=== PATIENT | male | born 1970 | race African-American/Black ===

== ENCOUNTER 2018-09-09 18:33 | Inpatient (IN) | payer MEDICAID ==
[~2018-09-09] VITALS: Ht 177.8 cm; Wt 64.9 kg
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
[2018-09-09] MEDS ORDERED: IV NS 0.9% 1,000 ML BAG IV ONE (22:00)
[2018-09-09 22:18] LABS: BASOPHILS % (AUTO) 1.1 % (0.0-2.0); HEMATOCRIT 30 % (39-51); HEMOGLOBIN 10.2 g/dL (13.5-17.5); LYMPHOCYTES # (AUTO) 1.2 /CMM (0.8-4.8); LYMPHOCYTES % (AUTO) 32.8 % (20.0-44.0); MEAN CORPUSCULAR HGB CONC 34 g/dl (31.0-36.0); MEAN CORPUSCULAR VOLUME 88 fL (80-96); MONOCYTES # (AUTO) 0.9 /CMM (0.1-1.30); MONOCYTES % (AUTO) 23.1 % (2.0-12.0); NEUTROPHILS # (AUTO) 1.5 /CMM (1.8-8.9); PLATELET COUNT (AUTO) 147 /CMM (150-450); RED BLOOD CELL COUNT(AUTO) 3.42 MIL/uL (4.5-6.0); WHITE BLOOD COUNT (AUTO) 3.7 K/uL (4.3-11.0)
[2018-09-09 22:28] LABS: CALCIUM, SERUM 9.2 mg/dL (8.5-10.1); CARBON DIOXIDE 27 mmol/L (21-32); CHLORIDE 105 mmol/L (98-107); GLUCOSE 73 mg/dL (74-106); POTASSIUM 3.9 mmol/L (3.5-5.1); SODIUM SERUM 142 mmol/L (136-145); UREA NITROGEN, BLOOD 16 mg/dL (7-18)
--- NOTE | 2018-09-09 22:30 | NUR ---
MARTINE COLLECTED AND SENT TO LAB
[2018-09-09 22:36] LABS: ALANINE AMINOTRANSFERASE 28 U/L (12-78); ALBUMIN 3.5 g/dL (3.4-5.0); ALCOHOL, BLOOD < 3 mg/dL (0-0); ALKALINE PHOSPHATASE 68 U/L (46-116); ASPARTATE AMINOTRANSFERASE 33 U/L (15-37); BILIRUBIN,DIRECT 0.2 mg/dL (0.0-0.2); BILIRUBIN,TOTAL 0.5 mg/dL (0.2-1.0); TOTAL PROTEIN, SERUM 8.5 g/dL (6.4-8.2)
[2018-09-09 22:37] LABS: ACETAMINOPHEN 0 ug/ml (10-30); SALICYLATE 1.4 mg/dL (2.8-20.0)
[2018-09-09 23:00] LABS: BAND % (MANUAL) 1 % (0.0-5.0); EOSINOPHILS % (MANUAL) 3 % (0-4); LYMPHOCYTES % (MANUAL) 37 % (16-48); MONOCYTES % (MANUAL) 14 % (0-11.0); NEUTROPHILS % (MANUAL) 45 (42-76)
[2018-09-09 23:05] LABS: APPEARANCE,URINE CLEAR (CLEAR); BILIRUBIN,URINE 1+ (NEGATIVE); BLOOD, URINE 2+ Ery/uL (NEGATIVE); COLOR,URINE YELLOW (YELLOW); KETONES,URINE TRACE (NEGATIVE); LEUKOCYTE ESTERASE ,URINE NEGATIVE (NEGATIVE); NITRITE, URINE NEGATIVE (NEGATIVE); PROTEIN,URINE TRACE mg/dl (NEGATIVE); UGLUCOSE NEGATIVE (NEGATIVE); UROBILINOGEN,URINE 0.2 EU/dL (0.2)
[2018-09-09 23:18] LABS: BACTERIA,URINE Few /HPF (None Seen); SQUAMOUS EPITHELIAL CELL,UR Rare /HPF (None Seen); WBC,URINE 0-2 /HPF (0-3)
--- NOTE | 2018-09-09 23:45 | NUR ---
PER ALMOND GRINDER PRAVEENA, PT REFUSED CT SCAN. MD GREEN
--- NOTE | 2018-09-10 00:54 | NUR ---
AMANDA CALLED AND NIGHT CLEANER DR MUNSON
[2018-09-10] MEDS ORDERED: Z GUARD REMEDY 2 OZ OINT TP PRN (01:30)
[2018-09-10] MEDS ORDERED: ONDANSETRON HCL/PF 4 MG/2 ML VIAL IVP PRN (01:30)
[2018-09-10] MEDS ORDERED: ACETAMINOPHEN 325 MG TABLET PO PRN (01:30)
[2018-09-10] MEDS ORDERED: MAGNESIUM HYDROXIDE 30 ML UDC PO PRN (01:30)
[2018-09-10] MEDS ORDERED: MAG HYDROX/AL HYDROX/SIMETH 30 ML UDC PO PRN (01:30)
[2018-09-10] MEDS ORDERED: ZOLPIDEM TARTRATE 5 MG TABLET PO PRN (01:30)
--- NOTE | 2018-09-10 02:24 | NUR ---
REPORT GIVEN TO MARIANO FRANCO FOR SHAHZAD
[2018-09-10] MEDS: IV NS 0.9% 1,000 ML IV SCH ×3 (02:47→23:00)
--- NOTE | 2018-09-10 02:54 | NUR ---
DANCE PROFESSOR NOTES RECEIVED PT ON BED. VIA GURNEY. ON ROOM AIR SATURATING WELL. PT REFUSING TELE MONITOR , EXPLAINED RISK AND BENEFITS PT STILL REFUSED. CHARGE NURSE INFORMED. PT REFUSING SKIN ASSESSMENT. PT VERY PARANOID. V/S WNL. IV ACCESS PATENT AND INTACT. WILL MONITOR PT CLOSELY.
[2018-09-10 03:00] VITALS: BP 143/77
--- NOTE | 2018-09-10 04:32 | NUR ---
TISSUE TECHNICIAN NOTES PT REFUSING V/S TAKING AND IV FLUID. EXPLAINED RISK AND BENEFITS X3. PT STILL STRONGLY REFUSED. CHARGE NURSE INFORMED. WILL MONITOR PT CLOSELY.
--- NOTE | 2018-09-10 04:52 | NUR ---
RAYMOND MILL OPERATOR NOTES PT REFUSING BELONGING LIST CHECK. CHARGE NURSE INFORMED.
--- NOTE | 2018-09-10 06:20 | NUR ---
OSTEOPATHIC MEDICINE TEACHER NOTES INFORMED DR REGARDING PT NOT COMPLAINT TO MEDICINE, IV FLUIDS.
--- NOTE | 2018-09-10 07:18 | NUR ---
FLIGHT CONTROL MANAGER NOTES NO ACUTE CHANGES NOTED DURING THE SHIFT. PT REFUSING MEDICATIONS. TELE MONITOR AND IV FLUIDS,PROVIDED COMFORT AND SAFETY. WILL ENDORSE TO THE AM NURSE FOR CONTINUITY OF CARE.
[2018-09-10 08:00] VITALS: BP 143/77
--- NOTE | 2018-09-10 08:00 | NUR ---
PT in bed not in distress, refusing meds, IV, labs, x-ray explained benefits and risk of taking medications and refusing x3 notified with no new orders, pt requesting to eat currently md erlin notified
--- NOTE | 2018-09-10 09:49 | NUR ---
spoke with RNN PATIENT IS STILL REFUSING EXAMS ORDERED YESTERDAY (CT HEAD, CT C-SPINE, XR PELVIS).
--- NOTE | 2018-09-10 11:30 | NUR ---
pt refused labs, explained b/r x3 still refused.
[2018-09-10 12:00] VITALS: BP 143/79
[2018-09-10 12:40] VITALS: BP 143/79
--- NOTE | 2018-09-10 14:20 | NUR ---
FOLLOWED UP WITH RN AT 1420, PATIENT STILL REFUSED RADIOLOGY EXAMS
[2018-09-10 17:33] VITALS: BP 143/79
[2018-09-10] MEDS ORDERED: LORAZEPAM INJ 2 MG/ML VIAL IV PRN (19:00)
[2018-09-10 20:00] VITALS: BP 128/74
--- NOTE | 2018-09-10 20:17 | NUR ---
MS QUINTANA NOTES RECEIVED PATIENT AWAKE IN BED WITH NO DISTRESS NOTED. CALL LIGHT WITHIN REACH. NO C/O PAIN OR DISCOMFORT. PERIPHERAL LINE INTACT AND PATENT. BED IN LOW LOCK SETTING. ROOM FREE OF CLUTTER AND BELONGINGS KEPT NEAR BEDSIDE. WILL CONTINUE TO MONITOR. Addendum: 09/11/18 at 0652 by MARIELA ZAVALA RN SAMUEL QUINTANA NOTES
--- NOTE | 2018-09-10 20:18 | NUR ---
Followed once again by boiler control technician Angel. Pt. refused all xrays and CT exams, RN will CX orders.
[2018-09-11] MEDS: HYDROCODONE/APAP 5/325MG 1 EACH TABLET PO PRN ×4 (05:17→23:57)
[2018-09-11 05:33] VITALS: BP 128/74
--- NOTE | 2018-09-11 06:52 | NUR ---
NUCLEAR WEAPONS MECHANICAL SPECIALIST NOTES PATIENT AWAKE IN BED WIHT NO DISTRESS NOTED. CALL LIGHT WITHIN REACH. PATIENT STILL WITH EPISODES OF NON COMPLIANCE WITH ALL NURSING CARE DESPITE CONTINUED EXPLANATION OF RISKS AND BENEFITS X3. PRN NORCO 5/325MG 1 TAB PO GIVEN AT 0617 AND EFFECTIVE AFTER 45MINS. PATIENT AWAKE ALL NIGHT SCRATCHING AND SPEAKING TO SELF. PATIENT REDIRECTED NEEDED. BED IN LOW LOCK SETTING. ROOM FREE OF CLUTTER AND ALL BELONGINGS KEPT NEAR BEDSIDE. WILL ENDORSE TO ONCOMING SHIFT.
[2018-09-11 08:00] VITALS: BP 135/69
[2018-09-11] MEDS ORDERED: IV NS 0.9% 1,000 ML IV PRN (08:39)
[2018-09-11 12:00] VITALS: BP 135/69
[2018-09-11 16:26] VITALS: BP 135/69
[2018-09-11 20:00] VITALS: BP 103/57
[2018-09-11 20:15] VITALS: BP 103/57
[2018-09-12 04:46] VITALS: BP 170/97
--- NOTE | 2018-09-12 07:10 | NUR ---
RN NOTES RECEIVED PT ON BED, A/Ox3, ON RA, RESPIRATION EVEN AND UNLABORED, NO DISTRESS NOTED, L AC IV SITE G20 CLEAN ,DRY AND INTACT, SR UP x3, CALL LIGHT WITHIN EASY REACH, BED LOCKED AND IN LOWEST POSITION ,CONTINUE TO MONITOR.
[2018-09-12 08:00] VITALS: BP 112/65
--- NOTE | 2018-09-12 10:00 | NUR ---
RN NOTES PT REFUSED TO HAVE AM CARE, STATED WANTS TO SLEEP.
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
--- NOTE | 2018-09-12 13:15 | NUR ---
CRAIG along with MARIANO Wyatt met with pt. bedside to discuss discharge plan. Pt. would like to be discharged to his independent living, however pt. doesn't have the exact address but would like to be dropped off at [address], in [facility] [address]. Pt. states he needs a walker to ambulate. Physical Therapy consult is ordered regarding pt. able to ambulate or not. Pt. will require taxi transportation to his independent living. CRAIG gave pt. [facility] placement list, [facility] Homeless resource directory along with list of health clinics such as: [facility] [address], [address] [place]. [place] Hours: M, T, Th, F 8:30AM-4:30PM Walk-ins allowed Provide medical screening and pharmacy [facility] [address] [place]. [place] [address] Hours M-F 8AM-3:30PM Walk-ins allowed Provide medical screening and pharmacy [facility] [address]. [place] [phone] Hours 8AM-4:30PM Walk-ins allowed Provide medical screening and pharmacy Pt. requested for an additional lunch meal. Pt. to be discharged once cleared by Physical therapy. Homeless Patient Waiver Form was signed by the pt. and placed in pt's chart.
--- NOTE | 2018-09-12 13:30 | NUR ---
CRAIG received a call from RN Yoselin and Physical therapist Raman informing CRAIG that Pt. is saying he is in a lot of pain and cannot participate at this time. Pt. to be re-evaluated.
--- NOTE | 2018-09-12 13:45 | NUR ---
RN NOTES PT STATED HE CAN NOT WALK AND HE HAS LEG PAIN AND NEEDS PAIN MEDICATION. DR MULTANI NOTIFED .
--- NOTE | 2018-09-12 15:00 | NUR ---
RN NOTES PT REFUSED TO GET OUT OF BED AND STILL WANT PAIN MEDS , DR MULTANI NOTIFED , ORDER RECEIVED FROM DR MULTANI TO CALL SECURITY TO ESCORT PT OUT. H/L DISCONTINUED, WALKER PROVIDED TO PT , PT ABLE TO GET TO W/C WITHOUT ANY PROBLEM . PT SIGNED THE DISCHARGE INSTRUCTION , VERBALIZES UNDERSTANDING , TAXI VOUCHER PROVIDED, PT LEFT THE FLOOR TO MAIN ENTRANCE TO MAIN LOBBY ACCOMPANIED BY STAFF MEMBERS AND SECURITY IN STABLE CONDITION .
--- NOTE | 2018-09-12 15:05 | NUR ---
RN NOTES PT LEFT THE HOSPITAL TO [id number] [place] [phone] VIA TAXI IN STABLE CONDITION .
== END 2018-09-12 14:58 | disposition home or self-care (01) | DRG 52 ==
LOC: ER 18:40 → TELE1 09-10 02:23 → MEDSG1 09-10 17:13
PROVIDERS: ADMIT Nurse Practitioner Acute Care
DX: G92 Toxic encephalopathy (principal); D69.6 Thrombocytopenia, unspecified; D63.8 Anemia in other chronic diseases classified elsewhere; D72.819 Decreased white blood cell count, unspecified; F15.90 Other stimulant use, unspecified, uncomplicated; Z91.19 Patient's noncompliance with other medical treatment and regimen
CPT/HCPCS: 36415; 71045-TC; 80048-TC; 80076-TC; 80305; 81000-TC; 84484-TC; 85025-TC; 87081-TC; G0378; G0480; J2060; J7030

== ENCOUNTER 2019-05-04 18:28 | Inpatient (IN) | payer MEDICAID ==
[~2019-05-04] VITALS: Ht 182.9 cm; Wt 53.5 kg
[2019-05-04] MEDS ORDERED: ALBUTEROL FS 2.5 MG/3 ML VIAL.NEB ONE (19:48)
[2019-05-04] MEDS ORDERED: IBUPROFEN 600 MG TABLET PO ONE ×2 (20:00→20:06)
[2019-05-04] MEDS ORDERED: CEFTRIAXONE 1GM BAG (ER ONLY) 50 ML IV ONE (20:00)
[2019-05-04] MEDS ORDERED: AZITHROMYCIN 500 MG in IV D5W 250 ML IV ONE (20:00)
[2019-05-04] MEDS ORDERED: IV NS 0.9% 1,000 ML BAG IV ONE (20:00)
[2019-05-04] MEDS ORDERED: ALBUTEROL FS 2.5 MG/3 ML VIAL.NEB CONTNEB ONE (20:00)
[2019-05-04 20:07] LABS: BASOPHILS % (AUTO) 0.8 % (0.0-2.0); EOSINOPHILS % (AUTO) 2.8 % (0.0-6.0); HEMATOCRIT 22 % (39-51); HEMOGLOBIN 7.4 g/dL (13.5-17.5); LYMPHOCYTES # (AUTO) 0.2 /CMM (0.8-4.8); LYMPHOCYTES % (AUTO) 11.7 % (20.0-44.0); MEAN CORPUSCULAR HGB CONC 34 g/dl (31.0-36.0); MEAN CORPUSCULAR VOLUME 80 fL (80-96); MONOCYTES # (AUTO) 0.3 /CMM (0.1-1.30); MONOCYTES % (AUTO) 14.6 % (2.0-12.0); NEUTROPHILS # (AUTO) 1.4 /CMM (1.8-8.9); NEUTROPHILS % (AUTO) 70.1 % (43.0-81.0); PLATELET COUNT (AUTO) 123 /CMM (150-450); RED BLOOD CELL COUNT(AUTO) 2.76 MIL/uL (4.5-6.0)
[2019-05-04 20:18] LABS: CALCIUM, SERUM 7.9 mg/dL (8.5-10.1); CARBON DIOXIDE 26 mmol/L (21-32); CHLORIDE 97 mmol/L (98-107); CREATININE 0.8 mg/dL (0.6-1.3); GLUCOSE 97 mg/dL (74-106); POTASSIUM 3.7 mmol/L (3.5-5.1); SODIUM SERUM 130 mmol/L (136-145); UREA NITROGEN, BLOOD 8 mg/dL (7-18)
[2019-05-04 20:23] LABS: ALANINE AMINOTRANSFERASE 13 U/L (12-78); ALBUMIN 2.6 g/dL (3.4-5.0); ALKALINE PHOSPHATASE 60 U/L (46-116); ASPARTATE AMINOTRANSFERASE 23 U/L (15-37); BILIRUBIN,DIRECT 0.1 mg/dL (0.0-0.2); BILIRUBIN,TOTAL 0.3 mg/dL (0.2-1.0); TOTAL PROTEIN, SERUM 7.3 g/dL (6.4-8.2)
[2019-05-04 20:36] LABS: APPEARANCE,URINE Clear (CLEAR); BILIRUBIN,URINE Negative (NEGATIVE); BLOOD, URINE Negative Ery/uL (NEGATIVE); COLOR,URINE Yellow (YELLOW); KETONES,URINE Negative (NEGATIVE); LEUKOCYTE ESTERASE ,URINE Negative (NEGATIVE); NITRITE, URINE Negative (NEGATIVE); PH,URINE 6.5 (5.0-8.0); PROTEIN,URINE Negative (NEGATIVE); UGLUCOSE Negative (NEGATIVE); UROBILINOGEN,URINE 0.2 EU/dL (0.2)
[2019-05-04] MEDS ORDERED: EMTR1TAB12 PO (21:20)
[2019-05-04] MEDS ORDERED: ETHA400T8 PO (21:20)
[2019-05-04] MEDS ORDERED: RIFA150C22 PO (21:20)
[2019-05-04] MEDS ORDERED: OLAN7.5T3 PO (21:20)
[2019-05-04] MEDS ORDERED: AZIT250T13 PO (21:20)
[2019-05-04] MEDS ORDERED: ALBUTEROL FS 2.5 MG/0.5 ML VIAL.NEB NEB PRN (21:30)
[2019-05-04] MEDS ORDERED: ZOLPIDEM TARTRATE 5 MG TABLET PO PRN (21:30)
[2019-05-04] MEDS ORDERED: HYDROCODONE/APAP 5/325MG 1 EACH TABLET PO PRN (21:30)
[2019-05-04] MEDS ORDERED: HYDROCODONE/APAP 10/325MG 1 EA TABLET PO PRN (21:30)
[2019-05-04] MEDS ORDERED: IPRATROPIUM NEB FS 0.5 MG/2.5 ML AMPUL.NEB NEB PRN (21:30)
[2019-05-04] MEDS ORDERED: MAG HYDROX/AL HYDROX/SIMETH 30 ML UDC PO PRN (21:30)
[2019-05-04] MEDS ORDERED: ACETAMINOPHEN 325 MG TABLET PO PRN (21:30)
[2019-05-04 21:55] VITALS: BP 128/74
[2019-05-04 21:55] LABS: BAND % (MANUAL) 2 % (0.0-5.0); EOSINOPHILS % (MANUAL) 3 % (0-4); LYMPHOCYTES % (MANUAL) 12 % (16-48); MONOCYTES % (MANUAL) 15 % (0-11.0); NEUTROPHILS % (MANUAL) 68 (42-76)
[2019-05-04] MEDS ORDERED: VANCOMYCIN 1 GM VIAL ONE (22:30)
[2019-05-04] MEDS: IV NS 0.9% 1,000 ML IV PRN (22:39)
[2019-05-04 23:00] VITALS: BP 178/74
[2019-05-04] MEDS ORDERED: VANCOMYCIN 1 GM in IV D5W 250ml IV SCH (23:00)
[2019-05-04] MEDS ORDERED: PIPERACILLIN /TAZOBACTAM 2.25 G VIAL IV ONE (23:54)
[2019-05-05] MEDS ORDERED: SULFAMETHOXAZOLE/TRIMETHOPRIM 5 ML in IV D5W 250 ML IV SCH (01:00)
[2019-05-05 03:17] LABS: ABG BASE EXCESS -3.2 mmol/L; ABG OXYGEN SATURATION 95.2 % (92.0-98.5); ABG PCO2 27.4 mmHg (35.0-45.0); ABG PH 7.476 (7.350-7.450); ABG PO2 80.3 mmHg (75.0-100.0); AaDO2 36.6 mmHg; COHb 0.3 % (0.5-1.5); MetHb 0.9 % (0.0-1.5); O2Hb 94.1 % (94.0-97.0); SITE, ABG Right Radial; VENT MODE, BG ROOM AIR
[2019-05-05] MEDS ORDERED: SULFAMETHOXAZOLE/TRIMETHOPRIM 20 ML in IV D5W 500 ML IV ONE (03:30)
[2019-05-05 05:00] VITALS: BP 90/49
[2019-05-05] MEDS ORDERED: SULFAMETHOXAZOLE/TRIMETHOPRIM 10 ML VIAL IV ONE (05:12)
[2019-05-05] MEDS ORDERED: PIPERACILLIN /TAZOBACTAM 2.25 G VIAL IV ONE ×2 (05:58→05:59)
[2019-05-05] MEDS: PIPERACILLIN /TAZOBACTAM 4.5 G in IV D5W 50 ML IV SCH ×5 (06:07→18:00)
[2019-05-05] MEDS ORDERED: FEE PK DOSING 1 MIN EA MC ONE (07:45)
[2019-05-05 08:00] VITALS: BP 87/42
[2019-05-05] MEDS: VANCOMYCIN 0.75 GM in IV D5W 250 ML IV SCH ×2 (08:00→16:00)
[2019-05-05] MEDS: ONDANSETRON HCL/PF 4 MG/2 ML VIAL IVP PRN ×2 (08:02→16:37)
[2019-05-05] MEDS: PANTOPRAZOLE 40 MG TABLET.DR PO SCH (08:48)
[2019-05-05] MEDS: IV NS 0.9% 1,000 ML IV PRN (10:52)
[2019-05-05 12:00] VITALS: BP 101/43
[2019-05-05] MEDS: SULFAMETHOXAZOLE/TRIMETHOPRIM 20 ML in IV D5W 500 ML IV SCH ×2 (12:57→21:51)
[2019-05-05] MEDS: FLUCONAZOLE (100 MG) 100 MG TABLET PO SCH ×2 (13:59→14:00)
[2019-05-05] MEDS: MAGNESIUM HYDROXIDE 30 ML UDC PO PRN (13:59)
[2019-05-05 16:00] VITALS: BP 118/52
[2019-05-05] MEDS ORDERED: ENSURE ENLIVE 237 ML LIQUID (VANILLA) PO SCH (17:00)
[2019-05-05] MEDS: OLANZAPINE 5 MG TABLET PO SCH (18:00)
[2019-05-05] MEDS: ENSURE ENLIVE 237 ML LIQUID (VANILLA) PO SCH (18:09)
[2019-05-05 20:00] VITALS: BP 95/77
[2019-05-06 04:00] VITALS: BP 87/54
[2019-05-06] MEDS: SULFAMETHOXAZOLE/TRIMETHOPRIM 20 ML in IV D5W 500 ML IV SCH ×3 (05:53→23:43)
[2019-05-06] MEDS: PIPERACILLIN /TAZOBACTAM 4.5 G in IV D5W 50 ML IV SCH ×6 (06:00→23:30)
[2019-05-06] MEDS: PANTOPRAZOLE 40 MG TABLET.DR PO SCH (07:30)
[2019-05-06] MEDS: VANCOMYCIN 0.75 GM in IV D5W 250 ML IV SCH ×5 (07:49→23:30)
[2019-05-06 08:00] VITALS: BP 104/51
[2019-05-06] MEDS: ENSURE ENLIVE 237 ML LIQUID (VANILLA) PO SCH ×3 (08:08→17:00)
[2019-05-06] MEDS ORDERED: ETHAMBUTOL HCL (400 MG) 400 MG TABLET PO SCH (09:00)
[2019-05-06] MEDS ORDERED: AZITHROMYCIN 250 MG TABLET PO SCH (09:00)
[2019-05-06] MEDS ORDERED: EMTRICITABINE 200 MG CAPSULE PO SCH (09:00)
[2019-05-06] MEDS ORDERED: EMTRICITABINE/TENOFOVIR 1 TAB PO SCH (09:00)
[2019-05-06] MEDS ORDERED: RIFABUTIN 150 MG CAPSULE PO SCH (09:00)
[2019-05-06] MEDS ORDERED: TENOFOVIR DISOPROXIL FUMARATE 300 MG TABLET PO SCH (09:00)
[2019-05-06] MEDS: IV NS 0.9% 1,000 ML IV PRN ×2 (10:44→21:49)
[2019-05-06] MEDS: FLUCONAZOLE (100 MG) 100 MG TABLET PO SCH (13:28)
[2019-05-06 16:00] VITALS: BP 83/43
[2019-05-06] MEDS: OLANZAPINE 5 MG TABLET PO SCH (17:17)
[2019-05-06 20:00] VITALS: BP 82/52
[2019-05-06 23:53] VITALS: BP 85/43
[2019-05-07 00:01] VITALS: BP 85/43
[2019-05-07 04:19] VITALS: BP 97/54
[2019-05-07] MEDS: PIPERACILLIN /TAZOBACTAM 4.5 G in IV D5W 50 ML IV SCH ×3 (05:34→21:13)
[2019-05-07] MEDS: PANTOPRAZOLE 40 MG TABLET.DR PO SCH (07:30)
[2019-05-07 08:00] VITALS: BP 92/54
[2019-05-07] MEDS: VANCOMYCIN 0.75 GM in IV D5W 250 ML IV SCH ×2 (08:00→15:49)
[2019-05-07] MEDS: SULFAMETHOXAZOLE/TRIMETHOPRIM 20 ML in IV D5W 500 ML IV SCH ×3 (08:00→23:28)
[2019-05-07] MEDS: ENSURE ENLIVE 237 ML LIQUID (VANILLA) PO SCH ×3 (09:00→17:28)
[2019-05-07] MEDS ORDERED: HYDROMORPHONE INJ 0.5 MG/0.5 ML SYRINGE IV PRN ×2 (09:30→21:30)
[2019-05-07 10:15] LABS: EOSINOPHILS % (AUTO) 9.1 % (0.0-6.0); HEMATOCRIT 24 % (39-51); HEMOGLOBIN 7.7 g/dL (13.5-17.5); LYMPHOCYTES # (AUTO) 0.3 /CMM (0.8-4.8); LYMPHOCYTES % (AUTO) 21.2 % (20.0-44.0); MEAN CORPUSCULAR HGB CONC 33 g/dl (31.0-36.0); MEAN CORPUSCULAR VOLUME 79 fL (80-96); MONOCYTES # (AUTO) 0.2 /CMM (0.1-1.30); NEUTROPHILS # (AUTO) 0.7 /CMM (1.8-8.9); NEUTROPHILS % (AUTO) 55.7 % (43.0-81.0); PLATELET COUNT (AUTO) 112 /CMM (150-450); RED BLOOD CELL COUNT(AUTO) 2.96 MIL/uL (4.5-6.0)
[2019-05-07 10:21] LABS: POTASSIUM 5.3 mmol/L (3.5-5.1)
[2019-05-07 10:59] LABS: WHITE BLOOD COUNT (AUTO) 1.3 K/uL (4.3-11.0)
[2019-05-07 11:53] LABS: BAND % (MANUAL) 1 % (0.0-5.0); EOSINOPHILS % (MANUAL) 10 % (0-4); LYMPHOCYTES % (MANUAL) 10 % (16-48); MONOCYTES % (MANUAL) 13 % (0-11.0); NEUTROPHILS % (MANUAL) 66 (42-76)
[2019-05-07] MEDS: FLUCONAZOLE (100 MG) 100 MG TABLET PO SCH (12:59)
[2019-05-07] MEDS: HYDROMORPHONE 1 MG/1 ML DISP.SYRIN IV PRN ×2 (14:24→20:04)
[2019-05-07] MEDS: DIFLUCAN -NS 100 MG in PREMIX IV SCH (15:21)
[2019-05-07] MEDS ORDERED: TBO-FILGRASTIM 300 MCG/0.5 ML SYRINGE SQ SCH (15:30)
[2019-05-07 16:00] VITALS: BP 86/57
[2019-05-07 20:00] VITALS: BP 95/54
[2019-05-08] MEDS: VANCOMYCIN 0.75 GM in IV D5W 250 ML IV SCH ×3 (01:59→18:20)
[2019-05-08] MEDS: MAGNESIUM HYDROXIDE 30 ML UDC PO PRN (02:21)
[2019-05-08 04:00] VITALS: BP 87/54
[2019-05-08] MEDS: IV NS 0.9% 1,000 ML IV PRN ×2 (05:56→06:26)
[2019-05-08] MEDS: PIPERACILLIN /TAZOBACTAM 4.5 G in IV D5W 50 ML IV SCH ×5 (06:00→17:31)
[2019-05-08 06:59] VITALS: BP 94/54
[2019-05-08] MEDS: PANTOPRAZOLE 40 MG TABLET.DR PO SCH ×2 (07:30→08:03)
[2019-05-08 08:00] VITALS: BP 98/54
[2019-05-08] MEDS: HYDROMORPHONE 1 MG/1 ML DISP.SYRIN IV PRN ×3 (08:03→17:31)
[2019-05-08] MEDS: SULFAMETHOXAZOLE/TRIMETHOPRIM 20 ML in IV D5W 500 ML IV SCH ×2 (08:09→18:16)
[2019-05-08] MEDS: ENSURE ENLIVE 237 ML LIQUID (VANILLA) PO SCH ×3 (08:11→17:45)
[2019-05-08 11:22] LABS: BASOPHILS % (AUTO) 0.5 % (0.0-2.0); EOSINOPHILS % (AUTO) 3.4 % (0.0-6.0); HEMATOCRIT 22 % (39-51); HEMOGLOBIN 7.3 g/dL (13.5-17.5); LYMPHOCYTES # (AUTO) 0.3 /CMM (0.8-4.8); LYMPHOCYTES % (AUTO) 4.9 % (20.0-44.0); MEAN CORPUSCULAR HGB CONC 33 g/dl (31.0-36.0); MEAN CORPUSCULAR VOLUME 79 fL (80-96); MONOCYTES # (AUTO) 0.2 /CMM (0.1-1.30); MONOCYTES % (AUTO) 3.6 % (2.0-12.0); NEUTROPHILS # (AUTO) 5.1 /CMM (1.8-8.9); NEUTROPHILS % (AUTO) 87.6 % (43.0-81.0); PLATELET COUNT (AUTO) 104 /CMM (150-450); RED BLOOD CELL COUNT(AUTO) 2.78 MIL/uL (4.5-6.0); WHITE BLOOD COUNT (AUTO) 5.9 K/uL (4.3-11.0)
[2019-05-08 11:31] LABS: CALCIUM, SERUM 7.8 mg/dL (8.5-10.1); CREATININE 1.4 mg/dL (0.6-1.3); POTASSIUM 4.7 mmol/L (3.5-5.1)
[2019-05-08] MEDS: DIFLUCAN -NS 100 MG in PREMIX IV SCH (15:25)
[2019-05-08 16:00] VITALS: BP 110/84
[2019-05-08] MEDS: OLANZAPINE 5 MG TABLET PO SCH (17:35)
[2019-05-08] MEDS: ACETAMINOPHEN 650 MG/20.3 ML UDC PO PRN ×2 (19:03→19:05)
[2019-05-08 20:00] VITALS: BP 127/92
[2019-05-08 22:46] LABS: BASOPHILS % (AUTO) 0.6 % (0.0-2.0); EOSINOPHILS % (AUTO) 4.4 % (0.0-6.0); HEMATOCRIT 22 % (39-51); HEMOGLOBIN 7.4 g/dL (13.5-17.5); LYMPHOCYTES # (AUTO) 0.4 /CMM (0.8-4.8); LYMPHOCYTES % (AUTO) 6.5 % (20.0-44.0); MEAN CORPUSCULAR HGB CONC 33 g/dl (31.0-36.0); MEAN CORPUSCULAR VOLUME 79 fL (80-96); MONOCYTES # (AUTO) 0.3 /CMM (0.1-1.30); MONOCYTES % (AUTO) 4.8 % (2.0-12.0); NEUTROPHILS # (AUTO) 4.9 /CMM (1.8-8.9); NEUTROPHILS % (AUTO) 83.7 % (43.0-81.0); PLATELET COUNT (AUTO) 112 /CMM (150-450); RED BLOOD CELL COUNT(AUTO) 2.83 MIL/uL (4.5-6.0); WHITE BLOOD COUNT (AUTO) 5.8 K/uL (4.3-11.0)
[2019-05-09] MEDS: PIPERACILLIN /TAZOBACTAM 4.5 G in IV D5W 50 ML IV SCH ×4 (00:11→18:22)
[2019-05-09] MEDS: VANCOMYCIN 0.75 GM in IV D5W 250 ML IV SCH ×4 (00:12→23:56)
[2019-05-09] MEDS: SULFAMETHOXAZOLE/TRIMETHOPRIM 20 ML in IV D5W 500 ML IV SCH ×4 (01:55→22:59)
[2019-05-09 04:00] VITALS: BP 94/47
[2019-05-09] MEDS: IV NS 0.9% 1,000 ML IV PRN (07:25)
[2019-05-09] MEDS: PANTOPRAZOLE 40 MG TABLET.DR PO SCH (07:30)
[2019-05-09] MEDS: ENSURE ENLIVE 237 ML LIQUID (VANILLA) PO SCH ×3 (07:51→18:22)
[2019-05-09] MEDS: HYDROMORPHONE 1 MG/1 ML DISP.SYRIN IV PRN ×4 (07:55→20:11)
[2019-05-09 08:00] VITALS: BP 98/61
[2019-05-09 08:03] LABS: BASOPHILS % (AUTO) 0.8 % (0.0-2.0); EOSINOPHILS % (AUTO) 4.1 % (0.0-6.0); HEMATOCRIT 22 % (39-51); HEMOGLOBIN 7.4 g/dL (13.5-17.5); LYMPHOCYTES # (AUTO) 0.4 /CMM (0.8-4.8); LYMPHOCYTES % (AUTO) 7.3 % (20.0-44.0); MEAN CORPUSCULAR HGB CONC 33 g/dl (31.0-36.0); MEAN CORPUSCULAR VOLUME 80 fL (80-96); MONOCYTES # (AUTO) 0.4 /CMM (0.1-1.30); MONOCYTES % (AUTO) 8.2 % (2.0-12.0); NEUTROPHILS # (AUTO) 4.2 /CMM (1.8-8.9); NEUTROPHILS % (AUTO) 79.6 % (43.0-81.0); PLATELET COUNT (AUTO) 122 /CMM (150-450); RED BLOOD CELL COUNT(AUTO) 2.79 MIL/uL (4.5-6.0); WHITE BLOOD COUNT (AUTO) 5.3 K/uL (4.3-11.0)
[2019-05-09 08:19] LABS: CALCIUM, SERUM 7.9 mg/dL (8.5-10.1); CREATININE 1.1 mg/dL (0.6-1.3); MAGNESIUM 1.9 mg/dL (1.8-2.4); PHOSPHORUS 2.8 mg/dL (2.5-4.9); POTASSIUM 4.6 mmol/L (3.5-5.1)
[2019-05-09 09:32] LABS: BAND % (MANUAL) 5 % (0.0-5.0); EOSINOPHILS % (MANUAL) 2 % (0-4); LYMPHOCYTES % (MANUAL) 6 % (16-48); MONOCYTES % (MANUAL) 10 % (0-11.0); NEUTROPHILS % (MANUAL) 77 (42-76)
[2019-05-09] MEDS ORDERED: IPRATROPIUM NEB FS 0.5 MG/2.5 ML AMPUL.NEB NEB PRN (10:00)
[2019-05-09] MEDS ORDERED: ALBUTEROL HALF STRENGTH 1.25 MG/3 ML VIAL.NEB NEB PRN (10:00)
[2019-05-09 10:32] LABS: APPEARANCE,URINE CLEAR (CLEAR); BILIRUBIN,URINE NEGATIVE (NEGATIVE); BLOOD, URINE NEGATIVE Ery/uL (NEGATIVE); COLOR,URINE YELLOW (YELLOW); KETONES,URINE NEGATIVE (NEGATIVE); LEUKOCYTE ESTERASE ,URINE NEGATIVE (NEGATIVE); NITRITE, URINE NEGATIVE (NEGATIVE); PROTEIN,URINE NEGATIVE (NEGATIVE); UGLUCOSE NEGATIVE (NEGATIVE); UROBILINOGEN,URINE 0.2 EU/dL (0.2)
[2019-05-09 11:02] LABS: CREATININE, URINE 17.4 MG/DL (30.0-125.0)
[2019-05-09 11:42] LABS: EOSINOPHIL,URINE None Seen
[2019-05-09] MEDS ORDERED: FLUCONAZOLE (100 MG) 100 MG TABLET PO SCH (15:00)
[2019-05-09] MEDS: DIFLUCAN -NS 100 MG in PREMIX IV SCH (15:50)
[2019-05-09 16:00] VITALS: BP 91/58
[2019-05-09] MEDS: OLANZAPINE 5 MG TABLET PO SCH (18:00)
[2019-05-09 20:03] VITALS: BP 100/51
[2019-05-10] MEDS: HYDROMORPHONE 1 MG/1 ML DISP.SYRIN IV PRN ×3 (00:01→12:25)
[2019-05-10] MEDS: PIPERACILLIN /TAZOBACTAM 4.5 G in IV D5W 50 ML IV SCH ×3 (01:09→12:33)
[2019-05-10] MEDS: PANTOPRAZOLE 40 MG TABLET.DR PO SCH (05:16)
[2019-05-10] MEDS: IV NS 0.9% 1,000 ML IV PRN (05:18)
[2019-05-10 08:00] VITALS: BP 99/49
[2019-05-10] MEDS: VANCOMYCIN 0.75 GM in IV D5W 250 ML IV SCH ×2 (08:38→16:00)
[2019-05-10] MEDS: ENSURE ENLIVE 237 ML LIQUID (VANILLA) PO SCH ×2 (08:40→12:33)
[2019-05-10] MEDS: SULFAMETHOXAZOLE/TRIMETHOPRIM 20 ML in IV D5W 500 ML IV SCH ×2 (10:29→16:00)
[2019-05-10] MEDS: DIFLUCAN -NS 100 MG in PREMIX IV SCH (15:00)
[2019-05-10 16:00] VITALS: BP 92/48
== END 2019-05-10 18:25 | DRG 720 ==
LOC: ER 18:32 → TELE1 21:21 → MEDSG1 05-06 16:43
DX: A41.9 Sepsis, unspecified organism (principal); J96.01 Acute respiratory failure with hypoxia; N17.0 Acute kidney failure with tubular necrosis; D61.818 Other pancytopenia; E44.0 Moderate protein-calorie malnutrition; E22.2 Syndrome of inappropriate secretion of antidiuretic hormone; J18.9 Pneumonia, unspecified organism; D68.8 Other specified coagulation defects; D69.59 Other secondary thrombocytopenia; Z76.5 Malingerer [conscious simulation]; G40.909 Epilepsy, unspecified, not intractable, without status epilepticus; E88.09 Other disorders of plasma-protein metabolism, not elsewhere classified; Z91.19 Patient's noncompliance with other medical treatment and regimen; R65.20 Severe sepsis without septic shock
CPT/HCPCS: 36415; 36600; 71045-TC; 80048-TC; 80076-TC; 80202-TC; 81000-TC; 82533; 82570-TC; 83605-TC; 83615-TC; 83735-TC; 83935-TC; 84100-TC; 84155-TC; 84300-TC; 84484-TC; 85025-TC; 85730-TC; 86850-TC; 86921-TC; 87040-TC; 87081-TC; 87086-TC; A4216; G0378; J0456; J0696; J1170; J1442; J1450; J2405; J2543; J3370; J3490; J7030; J7042; J7050; J7060

== ENCOUNTER 2019-07-12 14:43 | Inpatient (IN) | payer MEDICAID ==
[~2019-07-12] VITALS: Ht 188 cm; Wt 61.2 kg
[~2019-07-12 14:43] MED LIST: AZIT250T13 PO; EMTR1TAB12 PO; ETHA400T8 PO; OLAN7.5T3 PO; RIFA150C22 PO
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
[2019-07-12] MEDS ORDERED: IV NS 0.9% 1,000 ML BAG IV ONE (15:30)
[2019-07-12] MEDS ORDERED: MORPHINE SULFATE INJ 2 MG/ML DISP.SYRIN IV ONE (15:30)
[2019-07-12] MEDS ORDERED: ONDANSETRON HCL/PF 4 MG/2 ML VIAL IVP ONE (15:30)
[2019-07-12] MEDS ORDERED: CEFEPIME 1 GM in IV D5W 50 ML IV ONE (15:30)
[2019-07-12 15:57] LABS: BASOPHILS % (AUTO) 0.5 % (0.0-2.0); EOSINOPHILS % (AUTO) 3.1 % (0.0-6.0); HEMATOCRIT 25 % (39-51); HEMOGLOBIN 8.1 g/dL (13.5-17.5); LYMPHOCYTES # (AUTO) 0.2 /CMM (0.8-4.8); LYMPHOCYTES % (AUTO) 8.9 % (20.0-44.0); MEAN CORPUSCULAR HGB CONC 33 g/dl (31.0-36.0); MEAN CORPUSCULAR VOLUME 82 fL (80-96); MONOCYTES # (AUTO) 0.3 /CMM (0.1-1.30); NEUTROPHILS # (AUTO) 1.8 /CMM (1.8-8.9); NEUTROPHILS % (AUTO) 74.5 % (43.0-81.0); PLATELET COUNT (AUTO) 75 /CMM (150-450); WHITE BLOOD COUNT (AUTO) 2.4 K/uL (4.3-11.0)
[2019-07-12] MEDS ORDERED: ONDANSETRON HCL/PF 4 MG/2 ML VIAL ONE (15:58)
[2019-07-12] MEDS ORDERED: MORPHINE SULFATE INJ 4 MG/ML DISP.SYRIN ONE (15:59)
[2019-07-12] MEDS ORDERED: IBUPROFEN 600 MG TABLET PO ONE (15:59)
[2019-07-12] MEDS: IBUPROFEN 600 MG TABLET PO ONE ×2 (16:00→16:07)
[2019-07-12 16:12] LABS: ALANINE AMINOTRANSFERASE 26 U/L (12-78); ALBUMIN 2.7 g/dL (3.4-5.0); ALKALINE PHOSPHATASE 89 U/L (46-116); ASPARTATE AMINOTRANSFERASE 36 U/L (15-37); BILIRUBIN,DIRECT 0.1 mg/dL (0.0-0.2); BILIRUBIN,TOTAL 0.3 mg/dL (0.2-1.0); CALCIUM, SERUM 8.1 mg/dL (8.5-10.1); CARBON DIOXIDE 27 mmol/L (21-32); CHLORIDE 102 mmol/L (98-107); CREATININE 0.9 mg/dL (0.6-1.3); GLUCOSE 84 mg/dL (74-106); LIPASE 103 U/L (73-393); POTASSIUM 3.5 mmol/L (3.5-5.1); SODIUM SERUM 136 mmol/L (136-145); TOTAL PROTEIN, SERUM 7.7 g/dL (6.4-8.2); UREA NITROGEN, BLOOD 11 mg/dL (7-18)
[2019-07-12] MEDS ORDERED: HYDR2VIA PO (16:14)
[2019-07-12] MEDS ORDERED: SENN-175 PO (16:14)
[2019-07-12] MEDS ORDERED: IPRA3AMP23 IH (16:14)
[2019-07-12 16:33] LABS: EOSINOPHILS % (MANUAL) 2 % (0-4); LYMPHOCYTES % (MANUAL) 10 % (16-48); MONOCYTES % (MANUAL) 12 % (0-11.0); NEUTROPHILS % (MANUAL) 76 (42-76)
--- NOTE | 2019-07-12 17:06 | NUR ---
CALLED JEIMY PATEL FOR ADMISSION
--- NOTE | 2019-07-12 17:18 | NUR ---
CALLED NURSING SUP FOR TELE BED
--- NOTE | 2019-07-12 17:23 | NUR ---
PATIENT ATTEMPTING TO URINATE ON URINAL BUT WITH NO SUCCESS AT THIS TIME. WITH ORDER FROM DR RAMOS FOR STRAIGHT CATH. PATIENT MADE AWARE BUT REFUSED CATHETERIZATION. RISKS AND BENEFITS EXPLAINED BUT TO NO AVAIL. PATIENT STRONGLY REFUSED AND SAID HE WILL ATTEMPT TO URINATE AGAIN LATER. DR GREEN, NO NEW ORDERS AT THIS TIME. WILL CONTINUE TO MONITOR
--- NOTE | 2019-07-12 18:14 | NUR ---
[id number] TELE DX SEPSIS
--- NOTE | 2019-07-12 18:20 | NUR ---
Charly lopez in [facility] - 07/12/19 at 1836 by NICK CALLED LAUREN TOTH, PAGED STRAP MACHINE OPERATOR AUTOMATIC ANDRE IBARRA
[2019-07-12] MEDS ORDERED: MAG HYDROX/AL HYDROX/SIMETH 30 ML UDC PO PRN (18:30)
[2019-07-12] MEDS ORDERED: MAGNESIUM HYDROXIDE 30 ML UDC PO PRN (18:30)
[2019-07-12] MEDS ORDERED: ONDANSETRON HCL/PF 4 MG/2 ML VIAL IVP PRN (18:30)
[2019-07-12] MEDS ORDERED: Z GUARD REMEDY 2 OZ OINT TP PRN (18:30)
--- NOTE | 2019-07-12 18:44 | NUR ---
REPORT GIVEN TO JULIET QUINTANA FOR SHAHZAD
[2019-07-12] MEDS ORDERED: FEE PK DOSING 1 MIN EA MC ONE (18:50)
[2019-07-12] MEDS ORDERED: ALBUTEROL FS 2.5 MG/0.5 ML VIAL.NEB NEB PRN (19:00)
[2019-07-12 19:05] VITALS: BP 107/70
--- NOTE | 2019-07-12 19:10 | NUR ---
SHELL REPRINT OPERATORPIPEMAN NOTES Received patient from ER via [facility], accompanied by ER staff. Patient is a/o x 3, irritable but able to listen to commands. Patient stable on RA breathing even and unlabored, no SOB. No signs of acute distress, complaints of generalized pain. IV located on L AC #20 patent and intact. Tele monitors placed on patient. VS taken bp 107/70 p 112 r 20 t 99.7 and spo2 100%. Patient was oriented to room and staff. All belongings accounted for. Safety precautions in place with bed in lowest position, breaks on, side rails up x2, and call light within reach. Will continue to monitor.
--- NOTE | 2019-07-12 19:17 | NUR ---
PATIENT TRANSFERRED TO [facility] VIA ACLS PROTOCOL. PATIENT TOLERATED TRANSFER WELL. RECEIVING RN AT BEDSIDE
[2019-07-12] MEDS ORDERED: IPRATROPIUM NEB FS 0.5 MG/2.5 ML AMPUL.NEB NEB PRN (19:30)
--- NOTE | 2019-07-12 19:35 | NUR ---
INSPECTOR TUBES NOTES Patient refused skin assessment at the moment due to generalized pain 10/10. Will try again later.
--- NOTE | 2019-07-12 19:50 | NUR ---
MS RN NOTES Patient complaining of generalized pain 10/10. Has Jermyn and Dilaudid PRN on EMAR but patient denying, wants IV pain medication. Called MD for new orders for pain medication via IV, but MD refused. Will talk to patient about trying PO pain medication. Will continue to monitor.
[2019-07-12] MEDS: HYDROMORPHONE HCL 2 MG TABLET PO PRN (20:20)
--- NOTE | 2019-07-12 20:25 | NUR ---
MS RN NOTES Patient complaining of generalized pain 10/10. 2mg Dilaudid PO given to patient. Will continue to monitor.
[2019-07-12] MEDS: VANCOMYCIN 1.25 GM in IV D5W 250 ML IV SCH (20:28)
[2019-07-12] MEDS: IV NS 0.9% 1,000 ML IV SCH (20:28)
--- NOTE | 2019-07-12 20:40 | NUR ---
MS RN NOTES Patient still complaining of pain, heat packs placed on patient. Will continue to monitor.
[2019-07-12] MEDS ORDERED: CEFEPIME 2 GM in IV NS 0.9% 50 ML IV SCH (21:00)
--- NOTE | 2019-07-12 23:55 | NUR ---
MS RN NOTES Was notified from telemedicine physician patient HR increased to 140. Patient appeared to be sleeping. VS taken. BP 108/ 54 P 147 T 101.2 O2 88%. Cooling measures done with putting room to coldest setting and removed blankets. Put patient on 2L via NC. Md notified and received orders of ABG, lactate, 5L O2 via NC and 650 mg tylenol.
[2019-07-12 23:58] VITALS: BP 108/54
[2019-07-13] VITALS (75 sets, daily range): BP systolic 69–122; BP diastolic 30–75
[2019-07-13] MEDS: CEFEPIME 2 GM in IV D5W 100 ML IV SCH ×4 (00:17→23:02)
[2019-07-13] MEDS: ACETAMINOPHEN 325 MG TABLET PO PRN ×3 (00:23→19:20)
--- NOTE | 2019-07-13 00:25 | NUR ---
MANUFACTURING DEVELOPMENT ENGINEER NOTES TYLENOL 650 MG PO GIVEN. WILL CONTINUE COOLING MEASURE AND WILL CONTINUE TO MONITOR.
[2019-07-13] MEDS ORDERED: ACETAMINOPHEN 650 MG/SUPP.RECT RC PRN (00:30)
[2019-07-13 00:44] LABS: ABG BASE EXCESS -1.7 mmol/L; ABG OXYGEN SATURATION 95.4 % (92.0-98.5); ABG PCO2 36.1 mmHg (35.0-45.0); ABG PH 7.414 (7.350-7.450); ABG PO2 88.2 mmHg (75.0-100.0); AaDO2 155.5 mmHg; COHb 0.2 % (0.5-1.5); O2Hb 94.3 % (94.0-97.0); SITE, ABG Right Radial; VENT MODE, BG 5 LNC
[2019-07-13] MEDS ORDERED: IBUPROFEN 200 MG TABLET PO PRN (02:00)
[2019-07-13] MEDS ORDERED: IV NS 0.9% 1,000 ML IV ONE (02:30)
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
--- NOTE | 2019-07-13 02:50 | NUR ---
LOG GRADER NOTES 0125 Rechecked patient vitals. BP 75/42 P 167 T 103.2 HR 160 0131 Rapid response called BP 75/ 42 P 167 T 103 BS 98 0132 Rapid response arrived 0132 EKG done- sinus tachy 0135 Bolus NS 500 mL 0142 P 154 BP 75/42 , ice pack placed on patient 0144 MD paged [phone] Spoke to MD - ordered to be transferred to ICU, 1L Bolus, Advil 600 mg 0200 Gave report to ICU nurse Aurora 0212 left med surg floor 0216 patient arrived to ICU room 260
--- NOTE | 2019-07-13 02:50 | NUR ---
ICU/SENIOR BENEFITS SPECIALIST CALLED FITTER MECHANIC MD ABOUT LOW BP AND ALLERGY TO MOTRIN. 1.MD CHE SAID TO GIVEN TYLENOL 650MG VIA PO Q 6 HRS PRN FOR PAIN & FEVER, 2. MORPHINE 1MG IVP Q 6 HRS PRN SEVER PAIN 3. DONTAE FOR LOW BP KEEP MAP GREATER THAN 65 & SBP GREATER THAN 90 4. SECOND PRESSOR IS LEVO 5. PICC LINE FOR BP 6. STAT CT TO ABDOMEN, CHEST, PELVIS CHARGE NURSE IS AWARE OF THESE ORDERS AND CARRIED OUT.
[2019-07-13] MEDS ORDERED: SULFAMETHOXAZOLE/TRIMETHOPRIM 10 ML VIAL IV ONE (02:55)
--- NOTE | 2019-07-13 03:00 | NUR ---
ICU/GENERATION MECHANIC HELPER PT TAKEN DOWN FOR CT WITHOUT CONTRAST TO ABDOMEN, PELVIS, CHEST WITH CHARGE NURSE.
[2019-07-13] MEDS ORDERED: SULFAMETHOXAZOLE/TRIMETHOPRIM 15 ML in IV D5W 250 ML IV SCH (03:30)
[2019-07-13] MEDS ORDERED: NOREPINEPHRINE 8 MG in IV D5W 500 ML IV PRN (03:30)
[2019-07-13] MEDS ORDERED: PHENYLEPHRINE 20 MG in IV D5W 250 ML IV PRN (03:30)
[2019-07-13] MEDS ORDERED: SULFAMETHOXAZOLE/TRIMETHOPRIM 15 ML in IV D5W 250 ML IV ONE (03:30)
--- NOTE | 2019-07-13 03:30 | NUR ---
ICU/RN- PT. TOLERATED CT WELL. BACK TO ROOM 260 BY BED PER ACLS PROTOCOL.
[2019-07-13] MEDS: IV NS 0.9% 1,000 ML IV SCH ×3 (03:54→18:08)
[2019-07-13] MEDS: VANCOMYCIN 1.25 GM in IV D5W 250 ML IV SCH (03:55)
--- NOTE | 2019-07-13 04:05 | NUR ---
ICU/GOLF CART REPAIRER PT REFUSED TO SIGN CONSENT FOR PICC LINE INSERTION. PT MADE AWARE OF THE BENEFITS TO THIS. HOWEVER PT STILL REFUSED. CHARGE NURSE MADE AWARE OF THIS.
[2019-07-13 04:37] LABS: BASOPHILS % (AUTO) 0.1 % (0.0-2.0); EOSINOPHILS % (AUTO) 1.7 % (0.0-6.0); HEMATOCRIT 23 % (39-51); HEMOGLOBIN 7.5 g/dL (13.5-17.5); LYMPHOCYTES # (AUTO) 0.1 /CMM (0.8-4.8); LYMPHOCYTES % (AUTO) 2.3 % (20.0-44.0); MEAN CORPUSCULAR HGB CONC 33 g/dl (31.0-36.0); MEAN CORPUSCULAR VOLUME 83 fL (80-96); MONOCYTES # (AUTO) 0.2 /CMM (0.1-1.30); MONOCYTES % (AUTO) 8.6 % (2.0-12.0); NEUTROPHILS # (AUTO) 2.3 /CMM (1.8-8.9); NEUTROPHILS % (AUTO) 87.3 % (43.0-81.0); PLATELET COUNT (AUTO) 60 /CMM (150-450); RED BLOOD CELL COUNT(AUTO) 2.72 MIL/uL (4.5-6.0); WHITE BLOOD COUNT (AUTO) 2.6 K/uL (4.3-11.0)
[2019-07-13] MEDS ORDERED: PHENYLEPHRINE 10 MG/ML VIAL ONE (04:39)
[2019-07-13] MEDS: PHENYLEPHRINE 40 MG in IV D5W 250 ML IV PRN ×3 (04:46→20:17)
[2019-07-13 04:53] LABS: CALCIUM, SERUM 7.1 mg/dL (8.5-10.1); CREATININE 0.9 mg/dL (0.6-1.3)
[2019-07-13 04:57] LABS: MAGNESIUM 1.1 mg/dL (1.8-2.4)
--- NOTE | 2019-07-13 05:00 | NUR ---
ICU/URBAN GARDENING SPECIALIST PT'S BLOOD PRESSURE IS LOW AT 70'S, NOTIFIED CHARGE NURSE WHO THEN HUNG UP DONTAE, WILL CONTINUE TO MONITOR THIS PT'S BLOOD PRESSURE AND HEART RATE.
[2019-07-13 05:06] LABS: NEUTROPHILS % (MANUAL) 85 (42-76)
[2019-07-13 05:07] LABS: EOSINOPHILS % (MANUAL) 1 % (0-4); LYMPHOCYTES % (MANUAL) 6 % (16-48); MONOCYTES % (MANUAL) 8 % (0-11.0)
--- NOTE | 2019-07-13 05:15 | NUR ---
ICU/LIQUOR GRINDER MILL OPERATOR CRITICAL LAB OF LOW MAG AT 1.1, WILL CALL MD WHEN ALL CRITICAL LABS COME IN.
--- NOTE | 2019-07-13 06:05 | NUR ---
ICU/DOG BEHAVIORIST CALLED JUKEBOX COIN COLLECTOR MD VAZQUEZ FOR MAG 1.1, GAVE ORDER FOR MAG 4 BAGS. CHARGE NURSE AWARE OF THIS ORDER.
--- NOTE | 2019-07-13 06:25 | NUR ---
ICU/LENS CLEANER MD AWARE OF CT RESULTS, NO NEW ORDERS.
[2019-07-13] MEDS: Magnesium 1GM/D5W 100ML PREMIX 100 ML IV SCH ×4 (06:37→10:34)
--- NOTE | 2019-07-13 06:50 | NUR ---
ICU/HOME DECORATOR CT WAS DONE HOWEVER IT WAS ONLY ABDOMEN AND PELVIS, CHEST WASN'T DONE. CT OF THE CHEST WAS ORDERED AND DAY NURSE MADE AWARE OF THE ORDER FOR CHEST CT.
--- NOTE | 2019-07-13 07:13 | NUR ---
ICU/DAIRY SCIENTIST REPORT GIVEN TO DAY NURSE. ALSO MADE AWARE OF CT CHEST. WELL MAG 1.1; 1 OF 4 BAGS TO BE GIVEN.
[2019-07-13] MEDS: SULFAMETHOXAZOLE/TRIMETHOPRIM 15 ML in IV D5W 250 ML IV SCH ×3 (08:08→23:39)
--- NOTE | 2019-07-13 08:55 | NUR ---
received pt from shift supervisor, a/o x4, ST, on 5L 02, sat well, on emmanuel at 40mcg, tolerated diet, urinates in urinal, very noncompliant, refused skin assessment and PICC line for merry, notified, v/s stable, no pain, pt turns and repositions by himself.
[2019-07-13] MEDS ORDERED: POTASSIUM CHLORIDE 20 MEQ TAB.PRT.SR PO ONE (09:00)
[2019-07-13] MEDS: SENNOSIDES 8.6 MG TABLET PO SCH (09:13)
[2019-07-13 11:06] LABS: APPEARANCE,URINE CLEAR (CLEAR); BILIRUBIN,URINE NEGATIVE (NEGATIVE); BLOOD, URINE NEGATIVE Ery/uL (NEGATIVE); COLOR,URINE YELLOW (YELLOW); KETONES,URINE NEGATIVE (NEGATIVE); LEUKOCYTE ESTERASE ,URINE NEGATIVE (NEGATIVE); NITRITE, URINE NEGATIVE (NEGATIVE); PH,URINE 6.5 (5.0-8.0); PROTEIN,URINE NEGATIVE (NEGATIVE); UGLUCOSE NEGATIVE (NEGATIVE); UROBILINOGEN,URINE 0.2 EU/dL (0.2)
--- NOTE | 2019-07-13 12:47 | NUR ---
pt has temp 103.2, HR 140- 147 refusing cooling measured, wants Tylenol only.
[2019-07-13] MEDS ORDERED: K PHOS NEUTRAL 250 MG TABLET PO ONE (13:00)
[2019-07-13] MEDS: VANCOMYCIN 1 GM in IV D5W 250 ML IV SCH ×2 (15:01→20:32)
[2019-07-13] MEDS: HYDROMORPHONE HCL 2 MG TABLET PO PRN ×3 (15:01→23:04)
--- NOTE | 2019-07-13 16:16 | NUR ---
pt is resting in the bed, a/o x4, ST, R PICC inserted, good urine output, tolerates diet, on emmanuel at 100mcg, Temp 100.0, v/s stable, no pain.
--- NOTE | 2019-07-13 16:53 | NUR ---
pt refused bed bath.
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
--- NOTE | 2019-07-13 19:30 | NUR ---
WEATHERIZATION ADMINISTRATOR INITIAL SHIFT NOTES RECEIVED PATIENT IN BED, AWAKE, A/O X4, ABLE TO VERBALIZE NEEDS. PATIENT STATES "IM READY FOR MY DILAUDID. THE DOCTOR CHANGED IT TO IV." PER REPORT FROM DAY SHIFT NURSE, PATIENT WITH ORDERS FOR DILAUDID 2MG PO. WILL ADMINISTER MEDS ORDERED. NURSE EXPLAINED ORDERS TO PATIENT, WHOM STARTED TO LAUGH, STATING "I ALMOST GOT YOU TO GIVE ME IV DILAUDID." LIMITS SET WITH PATIENT FOR MEDICATION SEEKING BEHAVIOR. BEDSIDE TELEMETRY MONITORING SHOWS SINUS RHYTHM, HR 84 BPM AT THIS TIME. MAJO PICC PATENT AND INTACT, ONGOING IVF NS @ 125ML/HR, NEOSYNEPHRINE GTT CURRENTLY @ 200MCG, WILL TITRATE ACCORDINGLY. PATIENT CONTINUES TO REFUSE TURNING AND REPOSITIONING, STATING "IM CHILL RIGHT NOW." PATIENT LEFT IN SITTING POSITION IN BED, ALL NEEDS ATTENDED TO AT THIS TIME. WILL CLOSELY MONITOR
--- NOTE | 2019-07-13 20:00 | NUR ---
MOTORCYCLE ENGINE ASSEMBLER NOTES OFFERED TOOTH BRUSH AND SUPPLIES FOR PM CARE. PATIENT REFUSES, STATING "I'M CHILL RIGHT NOW."
--- NOTE | 2019-07-13 21:00 | NUR ---
FURNITURE ASSEMBLER NOTES - REFUSAL OF SPO2 MONITORING PATIENT NOTED TO REMOVE PULSE OXIMETRY MONITOR, REFUSING REPLACEMENT. NURSE EXPLAINED TO PATIENT REGARDING NEED FOR SPO2 MONITORING. PATIENT VERBALIZES UNDERSTANDING BUT STILL STRONGLY REFUSES, STATING "I TOLD YOU ALREADY, I'M CHILL". PATIENT'S BREATHING IS EVEN AND NONLABORED WHILE ON ROOM AIR, READINGS PRIOR TO REMOVAL WERE >92% ON ROOM AIR. WILL CONTINUE TO CLOSELY MONITOR.
--- NOTE | 2019-07-13 21:44 | NUR ---
COMMUNITY RELATIONS REP NOTES PATIENT CONTINUES TO REFUSE SPO2 MONITORING. BREATHING EVEN AND NONLABORED WHILE ON ROOM AIR, NO SIGNS AND SYMPTOMS OF RESPIRATORY DISTRESS AT THIS TIME. AGAIN EXPLAINED RISKS AND CONSEQUENCES OF REFUSING SPO2 MONITORING, PATIENT VERBALIZING UNDERSTANDING, STILL STRONGLY REFUSING. DR SMITH NOTIFIED/MADE AWARE REGARDING PATIENT'S CONTINUOUS REFUSAL OF SPO2 MONITORING
--- NOTE | 2019-07-13 23:56 | NUR ---
ENT NURSE NOTES PATIENT REQUEST FOR MOUTH WASH. ENCOURAGED PATIENT TO PERFORM SELF ORAL CARE SINCE HE IS ABLE, BUT PATIENT REFUSES TO BRUSH TEETH, MOUTH WASH USED ONLY.
[2019-07-14] VITALS (65 sets, daily range): BP systolic 76–131; BP diastolic 43–78
[2019-07-14] MEDS: PHENYLEPHRINE 40 MG in IV D5W 250 ML IV PRN ×4 (00:06→12:58)
--- NOTE | 2019-07-14 02:00 | NUR ---
REGISTERED NURSE FIRST ASSISTANT NOTES PATIENT REPEATEDLY TAKING OFF BP CUFF. PATIENT TEACHING RENDERED REGARDING NEED FOR BLOOD PRESSURE TO BE CHECKED FREQUENTLY DUE TO USE OF NEOSYNEPHRINE DRIP. PATIENT VERBALIZES UNDERSTANDING BUT IS NONCOMPLIANT. WILL REINFORCE TEACHINGS AND CONTINUE TO CHECK BLOOD PRESSURE ORDERED
[2019-07-14] MEDS: IV NS 0.9% 1,000 ML IV SCH ×3 (02:30→17:34)
[2019-07-14] MEDS ORDERED: PHENYLEPHRINE 10 MG/ML VIAL ONE (03:07)
[2019-07-14] MEDS: HYDROMORPHONE HCL 2 MG TABLET PO PRN ×6 (03:20→23:59)
[2019-07-14 04:22] LABS: BASOPHILS % (AUTO) 0.4 % (0.0-2.0); HEMATOCRIT 25 % (39-51); LYMPHOCYTES # (AUTO) 0.1 /CMM (0.8-4.8); LYMPHOCYTES % (AUTO) 4.7 % (20.0-44.0); MEAN CORPUSCULAR HGB CONC 32 g/dl (31.0-36.0); MEAN CORPUSCULAR VOLUME 82 fL (80-96); MONOCYTES # (AUTO) 0.3 /CMM (0.1-1.30); MONOCYTES % (AUTO) 8.6 % (2.0-12.0); NEUTROPHILS # (AUTO) 2.2 /CMM (1.8-8.9); NEUTROPHILS % (AUTO) 74.3 % (43.0-81.0); PLATELET COUNT (AUTO) 69 /CMM (150-450); RED BLOOD CELL COUNT(AUTO) 3.01 MIL/uL (4.5-6.0); WHITE BLOOD COUNT (AUTO) 2.9 K/uL (4.3-11.0)
[2019-07-14] MEDS: VANCOMYCIN 1 GM in IV D5W 250 ML IV SCH ×3 (04:33→20:56)
[2019-07-14 04:46] LABS: CALCIUM, SERUM 7.3 mg/dL (8.5-10.1); CREATININE 0.8 mg/dL (0.6-1.3); MAGNESIUM 1.9 mg/dL (1.8-2.4); PHOSPHORUS 2.8 mg/dL (2.5-4.9); POTASSIUM 4.6 mmol/L (3.5-5.1)
[2019-07-14 06:04] LABS: BAND % (MANUAL) 5 % (0.0-5.0); EOSINOPHILS % (MANUAL) 8 % (0-4); LYMPHOCYTES % (MANUAL) 6 % (16-48); MONOCYTES % (MANUAL) 5 % (0-11.0); NEUTROPHILS % (MANUAL) 76 (42-76)
--- NOTE | 2019-07-14 06:05 | NUR ---
RIP/MOULD OPERATOR NOTES PATIENT REPEATEDLY REMOVING BP CUFF DESPITE PATIENT TEACHING REGARDING IMPORTANCE OF CHECKING BLOOD PRESSURE, ESPECIALLY SINCE THE PATIENT IS ON NEOSYNEPHRINE GTT. PATIENT VERBALIZES UNDERSTANDING, IS ALERT AND ORIENTED, BUT CONTINUES TO BE NONCOMPLIANT. DR SMITH MADE AWARE OF PATIENT'S NONCOMPLIANCE TO HAVING BLOOD PRESSURE CHECKED.
--- NOTE | 2019-07-14 06:51 | NUR ---
INDEPENDENT FILM MAKER NOTES PATIENT ALLOWED STAFF TO CHECK BP 102/65. REMAINS ON NEOSYNEPHRINE GTT @ 140MCG. PATIENT WITH REPEATED NONCOMPLIANCE THROUGHOUT ENTIRE SHIFT, RISKS & CONSEQUENCES OF NONCOMPLIANCE DISCUSSED WITH PATIENT MULTIPLE TIMES. PATIENT VERBALIZING UNDERSTANDING, BUT STILL REMAINS NONCOMPLIANT. WILL ENDORSE THE PATIENT TO THE AM SHIFT NURSE FOR CONTINUITY OF CARE
[2019-07-14] MEDS: CEFEPIME 2 GM in IV D5W 100 ML IV SCH ×3 (07:22→23:23)
[2019-07-14] MEDS: SENNOSIDES 8.6 MG TABLET PO SCH (08:19)
[2019-07-14] MEDS: SULFAMETHOXAZOLE/TRIMETHOPRIM 15 ML in IV D5W 250 ML IV SCH ×3 (09:06→23:43)
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
[2019-07-14] MEDS: HYDROCORTISONE SOD SUCCINATE 100 MG/2 ML VIAL IV SCH ×3 (11:29→17:04)
--- NOTE | 2019-07-14 12:30 | NUR ---
RN NOTE S/E by Janak VEGA. He does not want to get info from [facility] for his medical histories there, made him aware it will be easier to treat him and give him the right treatment if we have more info, and he verbalized, "I don't want to, I don't want it to be easy for you guys. Do another test here." Lab at bedside for blood draw but patient now is refusing HIV test, "I don't want the test right now, please." Janak VEGA at bedside tried to talk to patient but patient refused.
[2019-07-14] MEDS: NYSTATIN (PYXIS) 500,000 UNIT/5 ML ORAL.SUSP PO SCH ×2 (12:41→17:04)
[2019-07-14] MEDS: FLUCONAZOLE IN NS,PREMIX 200 MG in PREMIX 1 EA IV SCH ×2 (13:44)
--- NOTE | 2019-07-14 18:46 | NUR ---
RN NOTE Off Brian/pressors since 1529. SBP >90's. Patient still refusing to be turned, he wants to do it himself. Provided stuffs for oral care. MAJO PICC intact. IVF infusing as ordered. Asked again to have the HIV test but he said, "Come back again toning about 7:30pm." Made Lab aware. Ordered many foods from kitchen, kitchen provided. Addendum: 07/14/19 at 1849 by RADHA SHARP RN Still refuses to place back O2 sat monitoring on. Also the BP cuff, he keeps on removing it.
--- NOTE | 2019-07-14 20:00 | NUR ---
2000HRS Received patient awake, A/Ox3. Needy always pressing call light even though your attending his needs Noted with non compliance as evidenced by refusing placement of BP cuff . Explained the risks for patient but still noted with refusal. With MAJO PICC intact and patent Able to use urinals, noted with pale yellow urine drained.all needs attended too , all due meds given as ordered kept pts clean dry and comfortable.v/s stable afebrile on tele sr on the monitor on room air no sob no distress noted will continue to monitor pts.
[2019-07-15] VITALS (14 sets, daily range): BP systolic 91–116; BP diastolic 48–87
[2019-07-15] MEDS: IV NS 0.9% 1,000 ML IV SCH (03:19)
[2019-07-15] MEDS: HYDROMORPHONE HCL 2 MG TABLET PO PRN ×4 (04:24→19:59)
[2019-07-15] MEDS: VANCOMYCIN 1 GM in IV D5W 250 ML IV SCH ×3 (04:41→22:00)
[2019-07-15 04:51] LABS: BASOPHILS % (AUTO) 1.2 % (0.0-2.0); EOSINOPHILS % (AUTO) 2.8 % (0.0-6.0); LYMPHOCYTES # (AUTO) 0.2 /CMM (0.8-4.8); LYMPHOCYTES % (AUTO) 9.8 % (20.0-44.0); MEAN CORPUSCULAR HGB CONC 34 g/dl (31.0-36.0); MEAN CORPUSCULAR VOLUME 81 fL (80-96); MONOCYTES # (AUTO) 0.2 /CMM (0.1-1.30); MONOCYTES % (AUTO) 9.8 % (2.0-12.0); NEUTROPHILS # (AUTO) 1.7 /CMM (1.8-8.9); NEUTROPHILS % (AUTO) 76.4 % (43.0-81.0); PLATELET COUNT (AUTO) 57 /CMM (150-450); RED BLOOD CELL COUNT(AUTO) 2.47 MIL/uL (4.5-6.0); WHITE BLOOD COUNT (AUTO) 2.3 K/uL (4.3-11.0)
[2019-07-15 05:18] LABS: CALCIUM, SERUM 7.6 mg/dL (8.5-10.1); CREATININE 0.9 mg/dL (0.6-1.3); POTASSIUM 4.6 mmol/L (3.5-5.1)
[2019-07-15 05:22] LABS: HEMOGLOBIN 6.8 g/dL (13.5-17.5)
[2019-07-15 05:23] LABS: HEMATOCRIT 20 % (39-51)
--- NOTE | 2019-07-15 05:40 | NUR ---
Received critical labs from lab ([facility]) hgb-6.8 hct 20 platelets 57 , spoke to Yazmin relayed critical labs with order to give 1 unit of prbc order noted and carried out, pts made aware of critical labs refused to signed consent for blood transfusion,will try again later to obtained consent.
[2019-07-15 06:21] LABS: BAND % (MANUAL) 3 % (0.0-5.0); EOSINOPHILS % (MANUAL) 2 % (0-4); LYMPHOCYTES % (MANUAL) 10 % (16-48); MONOCYTES % (MANUAL) 9 % (0-11.0); NEUTROPHILS % (MANUAL) 76 (42-76)
[2019-07-15] MEDS: CEFEPIME 2 GM in IV D5W 100 ML IV SCH ×3 (07:47→23:18)
--- NOTE | 2019-07-15 07:58 | NUR ---
ICU/RN INITIAL NOTES,AM BEDSIDE REPORT RECEIVED FROM NIGHT NURSE. PT ALERT, AWAKE, ORIENTED. PT NON COMPLIANT, CONTINUOUSLY REMOVES BP CUFF. PT IS REFUSING TO SIGN BLOOD CONSENT, REFUSES TO RECEIVE BLOOD DESPITE RISKS AND BENEFITS EXPLAINED. PT ON ROOM AIR, NO DISTRESS NOTED, SINUS ON TELE. RIGHT UPPER ARM PICC LINE PATENT AND INTACT, NO S/S OF INFECTION OR INFILTRATION NOTED. IVF INFUSING ORDERED. WILL CALL MD TO NOTIFY THAT PT IS REFUSING BLOOD AND OTHER CARE IN ICU. ALL NEEDS WILL BE ATTENDED TO, SAFETY MEASURES TAKEN, BED IN LOW POSITION, SIDE RIALS UP, CALL LIGHT WITHIN REACH. WILL CONTINUE CARE.
--- NOTE | 2019-07-15 08:19 | NUR ---
ICU/RN: LAB AT BEDSIDE FOR TYPE AND SCREEN, PT REFUSES TO ALLOW BLOOD DRAW. EXPLAINED BENEFITS AND RISKS AND PT CONTINUES TO REFUSE.
[2019-07-15] MEDS: NYSTATIN (PYXIS) 500,000 UNIT/5 ML ORAL.SUSP PO SCH ×3 (08:21→16:50)
[2019-07-15] MEDS: HYDROCORTISONE SOD SUCCINATE 100 MG/2 ML VIAL IV SCH ×3 (08:21→16:50)
[2019-07-15] MEDS: SENNOSIDES 8.6 MG TABLET PO SCH (08:21)
[2019-07-15] MEDS ORDERED: IV NS 0.9% 1,000 ML IV PRN (08:39)
[2019-07-15] MEDS ORDERED: IV NS 0.9% 1,000 ML BAG IV PRN (09:00)
[2019-07-15] MEDS: SULFAMETHOXAZOLE/TRIMETHOPRIM 15 ML in IV D5W 250 ML IV SCH ×3 (09:03→23:05)
[2019-07-15] MEDS: IV NS 0.9% 1,000 ML IV PRN ×2 (09:06→16:53)
--- NOTE | 2019-07-15 09:35 | NUR ---
ICU/RN: AT BEDSIDE. SPOKE TO PT REGARDING BLOOD TRANSFUSION AND EXPLAINED THE BENEFITS. PT CONTINUES TO REFUSE. ALL CONCERNS ADDRESSED. PT REQUESTING IV DILAUDID, PER NOT INDICATED AT THIS TIME. DISCUSSED XRAY RESULTS WITH PT, ORTHO CONSULT NEEDED PER MD. ALL QUESTIONS ANSWERED, WILL CONTINUE CARE.
[2019-07-15] MEDS: MORPHINE SULFATE INJ 2 MG/ML DISP.SYRIN IV PRN ×3 (09:36→23:20)
--- NOTE | 2019-07-15 10:52 | NUR ---
ICU/RN: REPORT ENDORSED TO MARIANO BOYLE. PT TRANSFERRED TO ROOM 205 WITH ACLS GUIDELINES. ON ROOM AIR, NO DISTRESS. ALL BELONGINGS SENT WITH PT.
--- NOTE | 2019-07-15 11:00 | NUR ---
MS RN NOTES RECEIVED PT FROM ICU. PT A/O X3-4. PT TOLERATING RA, WITH NO ACUTE RESPIRATORY DISTRESS NOTED. ON RA WITH 100%, BUT PREFERS TO HAVE SUPPLEMENTAL OXYGEN ON, PT ADDED WHEN HIS VOICE GETS LOUDER IT'S BECAUSE HE HAS SHORTNESS OF BREATH. PT DENIES ANY PAIN AT THE TIME. PT REQUESTS FOR BIGGER PRIVATE ROOM AND BECAUSE OF DIRTY SMELL IN THE ROOM. RN EXPLAINED ROOM WAS CLEANED BEFORE HE GOT IN AND ROOM WAS CLEANED AGAIN WITNESS BY PT IN THE ROOM. PT CLAIMING HE HAS ALLERGIES AND EYES GETTING PUFFY AND RED, RN STATED HE HAS NO PUFFY EYES OR REDNESS AT THE MOMENT. RN ASKED WHAT ALLERGY HE HAS TO, PT ANSWERED "I HAVE ALLERGY AND THAT'S THE ONLY THING YOU NEED TO KNOW". ALSO, PT REQUESTS SOMEONE TO MASSAGE HIS FOOT AND TO BE THERE. PT TALKED TO THE ASSISTANT WOMENS VOLLEYBALL COACH WITH ALL HIS CONCERNS, AND MD/GA AWARE. IVF NS AT 125ML/HR TO MAJO PICC WITH 3 LUMENS, INTACT AND FLUID INFUSING WELL. PT KEPT COMFORTABLE IN BED. PT'S BED IN LOWEST, LOCKED POSITION WITH SR X3. VITALS TAKEN AND RECORDED. CALL LIGHT KEPT WITHIN REACH. WILL CONTINUE PLAN OF CARE.
[2019-07-15] MEDS: FLUCONAZOLE IN NS,PREMIX 200 MG in PREMIX 1 EA IV SCH ×2 (12:16)
--- NOTE | 2019-07-15 18:47 | NUR ---
MS RN CLOSING NOTES PT REMAINS IN BED, A/O X3-4. PT TOLERATING RA, WITH NO ACUTE RESPIRATORY DISTRESS NOTED. PT DENIES ANY PAIN AT THE TIME. IVF NS AT 125ML/HR TO MAJO PICC WITH 3 LUMENS, INTACT AND FLUID INFUSING WELL. PT KEPT COMFORTABLE IN BED. ALL NEEDS AND CARE ATTENDED. PT'S BED IN LOWEST, LOCKED POSITION WITH SR X3. VITALS TAKEN AND RECORDED. CALL LIGHT KEPT WITHIN REACH. WILL ENDORSE TO INCOMING NIGHT NURSE FOR SHAHZAD.
--- NOTE | 2019-07-15 19:30 | NUR ---
MS RN OPENING NOTES: RECEIVED PT ON ROOM AIR AND IS TOLERATING WELL. NO SOB NOTED. NO S/S OF DISTRESS. PT IS A/OX3. PT HAS MAJO PICC LINE AND IS BEING INFUSED WITH IV NS AT 125ML/HR. BED KEPT IN LOW, LOCKED POSITION, AND SIDE RAILS X 2UP. WILL CONTINUE TO MONITOR PT.
--- NOTE | 2019-07-15 19:45 | NUR ---
MS QUINTANA NOTES: GARY KUMARI AT BEDSIDE INFORMING PT THAT HE HAS ABNORMAL FINDINGS. Addendum: 07/16/19 at 0007 by REX FAN RN PT TO BE ON AIRBORNE ISOLATION TO R/O DISEASES.
--- NOTE | 2019-07-15 20:28 | NUR ---
MS RN NOTES: PT REFUSING BLOOD DRAW FOR VANCO TROUGH.
[2019-07-16 00:15] VITALS: BP 102/60
[2019-07-16] MEDS: HYDROMORPHONE HCL 2 MG TABLET PO PRN ×3 (00:16→20:44)
[2019-07-16] MEDS: VANCOMYCIN 1 GM in IV D5W 250 ML IV SCH ×3 (05:26→21:12)
[2019-07-16] MEDS: IV NS 0.9% 1,000 ML IV PRN ×2 (05:26→20:44)
--- NOTE | 2019-07-16 05:58 | NUR ---
MS RN NOTES: RT AT BEDSIDE TO INDUCE SPUTUM. PT REFUSED.
--- NOTE | 2019-07-16 06:00 | NUR ---
pt refused sputum induction procedure, MARIANO Baires made aware
[2019-07-16 06:28] VITALS: BP 110/36
--- NOTE | 2019-07-16 06:35 | NUR ---
MS RN NOTES: PT COMPLAINING OF 10/10 GENERALIZED PAIN. PT WAS ADMINISTERED DILAUDID 2MG PO. WILL CONTINUE TO MONITOR.
--- NOTE | 2019-07-16 07:05 | NUR ---
MS RN NOTES: PT REFUSED LABS FROM DIVISION CONTROLLER.
--- NOTE | 2019-07-16 07:15 | NUR ---
MS RN OPENING NOTES PT IN BED, A/O X3-4. PT TOLERATING RA, WITH NO ACUTE RESPIRATORY DISTRESS NOTED. PT DENIES ANY PAIN AT THE TIME. IVF NS AT 125ML/HR TO MAJO PICC WITH 3 LUMENS, INTACT AND FLUID INFUSING WELL. PT KEPT COMFORTABLE IN BED. PT'S BED IN LOWEST, LOCKED POSITION WITH SR X3. VITALS TAKEN AND RECORDED. CALL LIGHT KEPT WITHIN REACH. WILL CONTINUE PLAN OF CARE.
--- NOTE | 2019-07-16 07:18 | NUR ---
MS RN CLOSING NOTES: ALL NEEDS WERE ATTENDED AND ANTICIPATED FOR. PT REFUSED CARE OTHER THAN COMPLY WITH RECEIVING IV ABX AND REQUESTING FOR PAIN MEDS. PT HAS MAJO PICC LINE AND IS BEING INFUSED WITH VANCO AT THIS TIME. BED KEPT IN LOW, LOCKED POSITION, AND SIDE RAILS X 2UP. NO SOB NOTED. PT ON AIRBORNE ISOLATION. ENDORSED TO AM NURSE FOR SHAHZAD.
[2019-07-16] MEDS: CEFEPIME 2 GM in IV D5W 100 ML IV SCH ×2 (07:27→16:01)
[2019-07-16 08:00] VITALS: BP 96/57
[2019-07-16] MEDS: SULFAMETHOXAZOLE/TRIMETHOPRIM 15 ML in IV D5W 250 ML IV SCH ×3 (08:27→23:08)
[2019-07-16] MEDS: HYDROCORTISONE SOD SUCCINATE 100 MG/2 ML VIAL IV SCH ×3 (08:43→16:56)
[2019-07-16] MEDS: SENNOSIDES 8.6 MG TABLET PO SCH (08:43)
[2019-07-16] MEDS: NYSTATIN (PYXIS) 500,000 UNIT/5 ML ORAL.SUSP PO SCH ×3 (08:43→16:56)
[2019-07-16] MEDS: ENSURE ENLIVE CHOC 237 ML CAN PO SCH ×3 (09:19→16:56)
[2019-07-16 10:20] VITALS: BP 102/61
[2019-07-16] MEDS: MORPHINE SULFATE INJ 2 MG/ML DISP.SYRIN IV PRN ×3 (10:25→23:09)
--- NOTE | 2019-07-16 11:30 | NUR ---
MS RN NOTES PT REFUSED BLOOD TO BE DRAWN. RISKS AND BENEFITS EXPLAINED. INSISTED TO REFUSE.
[2019-07-16] MEDS: FLUCONAZOLE (100 MG) 100 MG TABLET PO SCH (13:19)
--- NOTE | 2019-07-16 13:52 | NUR ---
MS RN NOTES PT REQUESTED FOR DOUBLE PORTION OF FOOD. BUT STILL REFUSES TO HAVE BLOOD DRAWN FOR VANCO TROUGH. /MAXWELL AWARE. AND OKAY TO CONTINUE SAME DOSE VANCO, UNTIL PT ALLOWS TO GIVE BLOOD FOR VANCO TROUGH.
--- NOTE | 2019-07-16 19:00 | NUR ---
MS RN CLOSING NOTES PT IN BED, A/O X3-4. PT TOLERATING RA, WITH NO ACUTE RESPIRATORY DISTRESS NOTED. PT DENIES ANY PAIN AT THE TIME. IVF NS AT 125ML/HR TO MAJO PICC WITH 3 LUMENS, INTACT AND FLUID INFUSING WELL. PT KEPT COMFORTABLE IN BED. ALL NEEDS AND ATTENDED. PT'S BED IN LOWEST, LOCKED POSITION WITH SR X3. VITALS TAKEN AND RECORDED. CALL LIGHT KEPT WITHIN REACH. WILL ENDORSE TO INCOMING NIGHT NURSE FOR SHAHZAD.
--- NOTE | 2019-07-16 19:15 | NUR ---
MS RN OPENING NOTES REPORT RECIEVED FROM [place]. PT IN BED, A/O X4. PT TOLERATING RA, WITH NO ACUTE RESPIRATORY DISTRESS NOTED. REVIEWED PAIN MANAGEMENT PLAN WITH PATIENT. VERBALIZED UNDERSTANDING. REPORTS PAIN 8/10 IN FEET AND BACK PATIENT HAS NO FACIAL GRIMACING AND APPEARS RELAXED IN BED IN NO APPARENT DISTRESS. IVF NS AT 125ML/HR TO MAJO PICC WITH 3 LUMENS, INTACT AND FLUID INFUSING WELL. PT'S BED IN LOWEST, LOCKED POSITION WITH SR X3. CALL LIGHT KEPT WITHIN REACH. WILL CONTINUE TO MONITOR.
--- NOTE | 2019-07-16 22:05 | NUR ---
lab called and said they were cancelling the following labs d/t pt refusing labs today per heir protocol. cbc, cmp, cd4, cd8, hiv rna rtcr, quanteferon gold, vancomycin trough from today at 12 30.
[2019-07-16 22:45] VITALS: BP 113/65
--- NOTE | 2019-07-17 00:17 | NUR ---
MISSED LABS FROM REFUSAL ON 07/16/19 ADDED TO AM LABS FOR TOMORROW AM.
[2019-07-17] MEDS: HYDROMORPHONE HCL 2 MG TABLET PO PRN ×4 (00:48→20:22)
[2019-07-17] MEDS: CEFEPIME 2 GM in IV D5W 100 ML IV SCH ×4 (00:48→23:41)
--- NOTE | 2019-07-17 01:02 | NUR ---
DR. MALONE IN TO SEE PATIENT (I&d)
[2019-07-17] MEDS: ZOLPIDEM TARTRATE 5 MG TABLET PO PRN (01:18)
--- NOTE | 2019-07-17 06:00 | NUR ---
REQUESTED AFB SAMPLE; LABS DRAWN PATIENT ALLOWED LABS TO BE DRAWN FROM PICC LINE. GIVEN TO COMMUNICATIONS EQUIPMENT OPERATOR FOR PROCESSING. QUANTIFERON GOLD NOT DRAWN. LAB IS A SEND OUT AND HAS LIMITED WINDOW FOR PROCESSESSING SO IT WAS RESCHEDULED FOR 4PM PER COMMUNICATIONS EQUIPMENT OPERATOR FRANCOIS. PATIENT REMINDED TO PLEASE SUBMIT SPUTUM SAMPLE. PT STATES "oH I KNOW IM JUST REALLY DRY AT THIS TIME. I WILL THOUGH WHEN I GET SOMETHING." BED DOWN AND LOCKED SRX3. CALL LIGHT WITHIN REACH.
[2019-07-17] MEDS: MORPHINE SULFATE INJ 2 MG/ML DISP.SYRIN IV PRN ×2 (06:11→13:12)
[2019-07-17 07:07] LABS: BASOPHILS % (AUTO) 0.8 % (0.0-2.0); EOSINOPHILS % (AUTO) 0.4 % (0.0-6.0); HEMATOCRIT 21 % (39-51); LYMPHOCYTES # (AUTO) 0.3 /CMM (0.8-4.8); LYMPHOCYTES % (AUTO) 8.1 % (20.0-44.0); MEAN CORPUSCULAR HGB CONC 33 g/dl (31.0-36.0); MEAN CORPUSCULAR VOLUME 82 fL (80-96); MONOCYTES # (AUTO) 0.8 /CMM (0.1-1.30); MONOCYTES % (AUTO) 23.1 % (2.0-12.0); NEUTROPHILS # (AUTO) 2.2 /CMM (1.8-8.9); NEUTROPHILS % (AUTO) 67.6 % (43.0-81.0); PLATELET COUNT (AUTO) 108 /CMM (150-450); RED BLOOD CELL COUNT(AUTO) 2.56 MIL/uL (4.5-6.0); WHITE BLOOD COUNT (AUTO) 3.2 K/uL (4.3-11.0)
--- NOTE | 2019-07-17 07:10 | NUR ---
RN OPENING NOTES RECEIVED PATIENT IN BED RESTING. NOT IN ANY FORM OF DISTRESS. NO SOB. IV ACCESS INTACT AND PATENT. NEEDS ATTENDED. KEPT PATIENT SAFE AND COMFORTABLE. BED IN LOW LOCKED POSITION. SIDERAILS UPX2, CALL LIGHT IN REACH. WILL CONT TO MONITOR ACCORDINGLY.
[2019-07-17 07:16] LABS: HEMOGLOBIN 6.9 g/dL (13.5-17.5)
[2019-07-17 07:21] LABS: CALCIUM, SERUM 7.8 mg/dL (8.5-10.1); CREATININE 0.9 mg/dL (0.6-1.3); POTASSIUM 2.9 mmol/L (3.5-5.1)
[2019-07-17 07:59] LABS: BAND % (MANUAL) 11 % (0.0-5.0); EOSINOPHILS % (MANUAL) 1 % (0-4); LYMPHOCYTES % (MANUAL) 9 % (16-48); MONOCYTES % (MANUAL) 21 % (0-11.0); NEUTROPHILS % (MANUAL) 58 (42-76)
[2019-07-17 08:00] VITALS: BP 122/73
[2019-07-17] MEDS: SENNOSIDES 8.6 MG TABLET PO SCH (08:20)
[2019-07-17] MEDS: NYSTATIN (PYXIS) 500,000 UNIT/5 ML ORAL.SUSP PO SCH ×3 (08:20→16:39)
[2019-07-17] MEDS: FLUCONAZOLE (100 MG) 100 MG TABLET PO SCH (08:20)
[2019-07-17] MEDS: HYDROCORTISONE SOD SUCCINATE 100 MG/2 ML VIAL IV SCH ×3 (08:21→16:39)
[2019-07-17] MEDS: ENSURE ENLIVE CHOC 237 ML CAN PO SCH ×3 (08:21→18:06)
[2019-07-17] MEDS: SULFAMETHOXAZOLE/TRIMETHOPRIM 15 ML in IV D5W 250 ML IV SCH ×2 (08:55→18:06)
[2019-07-17] MEDS ORDERED: POTASSIUM CHLORIDE 20 MEQ TAB.PRT.SR PO SCH (09:00)
--- NOTE | 2019-07-17 14:17 | NUR ---
rn notes pulled out dilaudid 2mg PO. patient changed mind to be administered in a later time.
--- NOTE | 2019-07-17 14:50 | NUR ---
rn notes dilaudid 2mg PO given as ordered for pain as patient requested for generalized pain 02/18.
[2019-07-17 16:00] VITALS: BP 114/72
--- NOTE | 2019-07-17 16:00 | NUR ---
refused blood draw. patient refused and said "no more! i already give you guys blood this morning!". explained to patient that blood is needed for quantiferon-TB test but patient still refused! he said "NO! NO! NO!".
--- NOTE | 2019-07-17 16:11 | NUR ---
ORNAMENTER received a call from the pt. requesting to see him. ORNAMENTER met with the pt. bedside. Pt. is alert and oriented x 4. Pt. states he currently resides at [facility] in [place]. However, Pt. informed ORNAMENTER, he doesn't like it there and wants to move to a different assisted Living. Pt. states, they have the homeless pt's share a room with him and he is constantly getting sick. When ORNAMENTER inquired how much SSI is he getting and how much is he paying for his assisted living. Pt. states, he is not getting any SSI and it is the [facility] who is funding for it. Pt is interested in getting [facility] [place]. ORNAMENTER to provide pt. with the resources tomorrow. Pt. also is requesting contact information to the DMV, which will be provided tomorrow. ORNAMENTER provided pt. with active listening and supportive counseling. ORNAMENTER consulted with case manager specialist Az, regarding pt. wanting to move into a different assisted living. Pt. has been non-compliant with his care.
--- NOTE | 2019-07-17 18:40 | NUR ---
bigg notes lab came back for blood draw but patient refused again saying "NO! NO!" Addendum: 07/17/19 at 1842 by HOWARD DECKER explained risk and benefit x3 but still refused. saying "NO!"
--- NOTE | 2019-07-17 19:30 | NUR ---
MS RN NOTE: PATIENT RESTING IN BED, NO ACUTE DISTRESS NOTED. BREATHING EVEN AND UNLABORED, NO SOB NOTED. PICC LINE TRIPLE LUMEN TO MAJO IN PLACE, INFUSING NS AT 125ML/HR. ISOLATION PRECAUTIONS OBSERVED. BED LOCKED AND IN LOWEST POSITION, CALL LIGHT IN REACH. WILL CONTINUE TO MONITOR.
--- NOTE | 2019-07-17 19:32 | NUR ---
RN CLOSING NOTES PATIENT IN STABLE CONDITION. ALL NEEDS ATTENDED AND PROVIDED. ALL DUE MEDS GIVEN ORDERED. KEPT PATIENT SAFE AND COMFORTABLE. BED IN LOW/LOCKED POSITION, SIDERAILS UPX2, CALL LIGHT IN REACH. ENDORSED TO NIGHT RN FOR SHAHZAD.
[2019-07-17 20:00] VITALS: BP 118/67
--- NOTE | 2019-07-17 20:30 | NUR ---
MS RN NOTE: PATIENT COMPLAINS OF GENERALIZED PAIN 8/10, DILAUDID 2MG ORAL PER MD ORDER. WILL CONTINUE TO MONITOR
[2019-07-18] MEDS: SULFAMETHOXAZOLE/TRIMETHOPRIM 15 ML in IV D5W 250 ML IV SCH ×3 (00:47→17:07)
[2019-07-18] MEDS: IV NS 0.9% 1,000 ML IV PRN ×3 (02:32→23:18)
[2019-07-18] MEDS: MORPHINE SULFATE INJ 2 MG/ML DISP.SYRIN IV PRN ×4 (03:27→23:13)
--- NOTE | 2019-07-18 03:39 | NUR ---
MS RN NOTE: PATIENT COMPLAINS OF GENERALIZED PAIN 9/, MORPHINE 1MG IV GIVEN PER MD ORDER. WILL CONTINUE TO MONITOR
--- NOTE | 2019-07-18 06:05 | NUR ---
MS RN NOTE: PATIENT RESTING IN BED, NO ACUTE DISTRESS NOTED. BREATHING EVEN AND UNLABORED, NO SOB NOTED. PICC LINE TRIPLE LUMEN TO MAJO IN PLACE, INFUSING NS AT 125ML/HR. PATIENT REFUSED LAB DRAW TODAY, EXPLAINED RISK AND BENEFITS, BUT CONTINUES TO REFUSE. ISOLATION PRECAUTIONS OBSERVED. BED LOCKED AND IN LOWEST POSITION, CALL LIGHT IN REACH. WILL ENDORSE TO DAY NURSE TO CONTINUE WITH PLAN OF CARE.
[2019-07-18 06:06] LABS: *BASOS 0 % (Not Estab.); *COMMENTS Note: (.); *EOS 0 % (Not Estab.); *HCT 20.8 % (37.5-51.0); *HGB 6.9 g/dL (13.0-17.7); *LYMPHOCYTES 12 % (Not Estab.); *LYMPHS, ABSOLUTE 0.4 x10E3/uL (0.7-3.1); *MCH 27.3 pg (26.6-33.0); *MCHC 33.2 g/dL (31.5-35.7); *MCV 82 fL (79-97); *MONOCYTES 20 % (Not Estab.); *MONOS, ABSOLUTE 0.7 x10E3/uL (0.1-0.9); *NEUTROPHILS 68 % (Not Estab.); *NEUTROPHILS, ABSOLUTE 2.3 x10E3/uL (1.4-7.0); *NRBC 6 % (0 - 0); *PLT 108 x10E3/uL (150-450); *RBC 2.53 x10E6/uL (4.14-5.80); *RDW 18.2 % (11.6-15.4)
--- NOTE | 2019-07-18 07:14 | NUR ---
RN OPENING NOTE PT RECEIVED IN BED AT LOWEST AND LOCKED POSITION WITH SIDE RAILS UP X2, A/O X4 BREATHING EVEN AND UNLABORED ON RA, NO S/S OF ANY DISTRESS OR PAIN NOTED AT THIS TIME, MAJO PICC LINE IS PATENT AND INTACT, PER NIGHT RN PT HAS REFUSED SKIN ASSESSMENT, REFUSED BLOOD TRANSFUSION, REFUSED TO SIGN TO GET MEDICAL RECORDS AND HAS REFUSED AM LABS THIS MORNING. SAFETY PRECAUTIONS IN PLACE, CALL LIGHT IN REACH, WILL MONITOR ACCORDINGLY.
[2019-07-18 08:00] VITALS: BP 117/65
[2019-07-18] MEDS: FLUCONAZOLE (100 MG) 100 MG TABLET PO SCH (08:05)
[2019-07-18] MEDS: ENSURE ENLIVE CHOC 237 ML CAN PO SCH ×3 (08:05→16:15)
[2019-07-18] MEDS: CEFEPIME 2 GM in IV D5W 100 ML IV SCH ×3 (08:05→23:12)
[2019-07-18] MEDS: NYSTATIN (PYXIS) 500,000 UNIT/5 ML ORAL.SUSP PO SCH ×3 (08:05→16:17)
[2019-07-18] MEDS: SENNOSIDES 8.6 MG TABLET PO SCH (08:05)
[2019-07-18] MEDS: HYDROMORPHONE HCL 2 MG TABLET PO PRN ×3 (08:06→20:02)
[2019-07-18] MEDS: HYDROCORTISONE SOD SUCCINATE 100 MG/2 ML VIAL IV SCH ×3 (08:07→16:17)
[2019-07-18 09:07] LABS: *% CD 4 POS. LYMPH 1.3 % (30.8-58.5); *ABSOLUTE CD 4 HELPER 5 /uL (359-1519); *ABSOLUTE CD 8 SUPPRESSOR 176 /uL (109-897); *CD4/CD8 RATIO 0.03 (0.92-3.72)
--- NOTE | 2019-07-18 11:34 | NUR ---
RN NOTE PT REFUSED LAB DRAW AGAIN AT THIS TIME
[2019-07-18 16:00] VITALS: BP 113/54
[2019-07-18] MEDS: DOCUSATE SODIUM 250 MG CAPSULE PO PRN (17:54)
--- NOTE | 2019-07-18 18:52 | NUR ---
RN CLOSING NOTE PT IN BED AT LOWEST AND LOCKED POSITION WITH SIDE RAILS UP X2, A/O X4 BREATHING EVEN AND UNLABOREDWITH NO DISTRESS OR PAIN AT THIS TIME, MAJO PICC LINE IS PATENT AND INTACT, SAFETY PRECAUTIONS IN PLACE, CALL LIGHT IN REACH, ALL NEEDS ATTENDED TO, WILL ENDORSE TO NIGHT RN FOR SHAHZAD.
--- NOTE | 2019-07-18 19:20 | NUR ---
RN OPENING NOTES RECEIVED PATIENT FROM MARIANO HINES. PATIENT AWAKE. A/O X 4. NO SIGNS OF RESPIRATORY DISTRESS, NO SHORTNESS OF BREATH, BREATHING EVEN AND UNLABORED ON RA. PATIENT COMPLAINING OF PAIN, WILL ADMINISTER PAIN MEDICATION WHEN ABLE. IV SITE MAJO PICC TRIPLE LUMEN, INTACT, PATENT, NO SIGNS OF INFECTION/INFILTRATION, IVF INFUSING AT 125 ML/HR. SAFETY PRECAUTIONS IMPLEMENTED; CALL LIGHT WITHIN REACH, BED LOW, BED LOCKED, BILATERAL UPPER SIDE RAILS UP, WILL CONTINUE TO MONITOR.
--- NOTE | 2019-07-18 19:41 | NUR ---
RN NOTES PATIENT AGGRESSIVE AND CONTINUES TO YELL AT STAFF. PATIENT CANNOT AMBULATE PER AM NURSE AND PATIENT ALSO STATES HIS LEGS FEEL WEAK/ PAINFUL WHEN TRYING TO MOVE HIS LEGS. PATIENT WANTS TO HAVE BM. PATIENT REFUSES TO PERFORM BM ON BED COATES AND COMMODE WAS OFFERED AT BED SIDE WHILE WE ASSIST. PATIENT STRONGLY REFUSING THE BED COATES AND COMMODE. BED ALARM REMAINS ON. PATIENT SAYS HE WILL HALT THE BM UNTIL HE CAN USE THE RESTROOM. WILL CONTINUE TO MONITOR.
[2019-07-18 20:00] VITALS: BP 121/74
--- NOTE | 2019-07-18 20:23 | NUR ---
RN NOTES PATIENT NOW COMPLIANT WITH 2 PERSON ASSISTANCE TO COMMODE. 1 FORMED BM NOTED.
[2019-07-18 21:21] VITALS: BP 121/74
[2019-07-18 23:05] VITALS: BP 132/78
[2019-07-19] MEDS: SULFAMETHOXAZOLE/TRIMETHOPRIM 15 ML in IV D5W 250 ML IV SCH ×3 (00:10→16:36)
[2019-07-19 02:00] VITALS: BP 128/73
[2019-07-19] MEDS: HYDROMORPHONE HCL 2 MG TABLET PO PRN ×3 (02:05→20:29)
--- NOTE | 2019-07-19 06:10 | NUR ---
RN CLOSING NOTES PATIENT IS RESTING IN BED. NO SIGNS OF RESPIRATORY DISTRESS, NO SHORTNESS OF BREATH NOTED, RESPIRATIONS EVEN AND UNLABORED. IV SITE PICC LINE TRIPLE LUMEN TO MAJO IN PLACE, INFUSING NS AT 125 ML/HR. PATIENT ACCEPTED BLOOD DRAW THIS MORNING. ISOLATION PRECAUTIONS OBSERVED. PATIENT KEPT CLEAN, DRY AND COMFORTABLE. PATIENT IS NEEDY. ALL NEEDS MET ON SHIFT. ALL DUE MEDS GIVEN ORDERED WITH NO ADVERSE EFFECTS. SAFETY PRECAUTIONS IMPLEMENTED; CALL LIGHT WITHIN REACH, BED LOW, BED LOCKED, BILATERAL UPPER SIDE RAILS UP. WILL ENDORSE TO DAY SHIFT NURSE FOR CONTINUITY OF CARE.
[2019-07-19 06:20] LABS: MEAN CORPUSCULAR HGB CONC 33 g/dl (31.0-36.0); MEAN CORPUSCULAR VOLUME 83 fL (80-96); PLATELET COUNT (AUTO) 97 /CMM (150-450); RED BLOOD CELL COUNT(AUTO) 2.45 MIL/uL (4.5-6.0)
[2019-07-19 06:28] LABS: CALCIUM, SERUM 8.1 mg/dL (8.5-10.1); MAGNESIUM 1.3 mg/dL (1.8-2.4); PHOSPHORUS 2.2 mg/dL (2.5-4.9); POTASSIUM 3.5 mmol/L (3.5-5.1)
[2019-07-19 07:18] LABS: HEMOGLOBIN 6.8 g/dL (13.5-17.5)
[2019-07-19 07:19] LABS: HEMATOCRIT 20 % (39-51)
[2019-07-19 07:23] LABS: EOSINOPHILS % (MANUAL) 1 % (0-4); LYMPHOCYTES % (MANUAL) 19 % (16-48); MONOCYTES % (MANUAL) 14 % (0-11.0); NEUTROPHILS % (MANUAL) 66 (42-76)
--- NOTE | 2019-07-19 07:27 | NUR ---
RN NOTES CRITICAL LAB RESULT 6.8 HGB AND [address] ANGEL DR. AWARE OF RESULTS. NEW ORDER TO TRANSFUSE 1 UNIT PRBC.
--- NOTE | 2019-07-19 07:33 | NUR ---
RN NOTES PATIENT REFUSED TO SIGNS CONSENTS FOR BLOOD TRANSFUSION. PATIENT REFUSED BLOOD TRANSFUSION. EDUCATED PATIENT THE RISKS AND BENEFITS, PATIENT INSISTS ON REFUSING STRONGLY. WILL ENDORSE TO DAY SHIFT NURSE.
[2019-07-19 07:38] LABS: WHITE BLOOD COUNT (AUTO) 3.6 K/uL (4.3-11.0)
[2019-07-19] MEDS: CEFEPIME 2 GM in IV D5W 100 ML IV SCH ×3 (08:33→23:00)
[2019-07-19] MEDS: HYDROCORTISONE SOD SUCCINATE 100 MG/2 ML VIAL IV SCH ×3 (08:33→16:38)
[2019-07-19] MEDS: NYSTATIN (PYXIS) 500,000 UNIT/5 ML ORAL.SUSP PO SCH ×3 (08:33→16:38)
[2019-07-19] MEDS: SENNOSIDES 8.6 MG TABLET PO SCH (08:33)
[2019-07-19] MEDS: FLUCONAZOLE (100 MG) 100 MG TABLET PO SCH (08:33)
[2019-07-19] MEDS: IV NS 0.9% 1,000 ML IV PRN (08:34)
[2019-07-19] MEDS: ENSURE ENLIVE CHOC 237 ML CAN PO SCH ×3 (08:55→16:36)
[2019-07-19] MEDS: MORPHINE SULFATE INJ 2 MG/ML DISP.SYRIN IV PRN ×2 (08:55→18:42)
[2019-07-19] MEDS: Magnesium 1GM/D5W 100ML PREMIX 100 ML IV SCH ×4 (12:23→15:25)
[2019-07-19] MEDS ORDERED: K PHOS NEUTRAL 250 MG TABLET PO ONE (12:30)
[2019-07-19 15:16] VITALS: BP 119/67
[2019-07-19 15:21] VITALS: BP 119/67
--- NOTE | 2019-07-19 18:29 | NUR ---
MS RN END OF SHIFT REPORT PT IS A/OX4, AFEBRILE. RESPIRATIONS ARE EVEN AND UNLABORED, NOT IN ANY ACUTE DISTRESS NOTED. PT DENIES ANY PAIN AT THIS TIME, NO C/O SOB, N/V. NOTED WITH EPISODES OF AGGRESSIVE VERBAL BEHAVIOR. PICC LINE TO MAJO INTACT, NO INFILTRATION NOTED. DRESSING KEPT CLEAN AND DRY. ABDOMEN IS SOFT AND NONDISTENDED, + BOWEL SOUNDS, + FLATUS. DENIES ANY BLADDER DISCOMFORT, VOIDS. PT IS CONTINENT, AMBULATORY. SKIN CDI. ALL NEEDS MET AND RENDERED. SAFETY MEASURES ARE IN PLACE. INSTRUCTED PT TO USE CALL LIGHT WHEN ASSISTANCE IS NEEDED, CALL LIGHT IS LEFT WITHIN REACH. WILL CONTINUE POC AND ENDORSE TO NEXT SHIFT.
[2019-07-19 20:00] VITALS: BP 116/66
[2019-07-19] MEDS ORDERED: MULTIVITAMINS,THERAGRAN 1 UDTAB TABLET PO SCH (21:00)
[2019-07-19] MEDS ORDERED: SULFAMETH/TRIMETH 800/160 MG 1 UDTAB TABLET PO SCH (21:00)
[2019-07-19] MEDS ORDERED: MULTIVITAMINS,THERAGRAN 1 UDTAB TABLET PO ONE (21:30)
[2019-07-19] MEDS: SULFAMETH/TRIMETH 800/160 MG 1 UDTAB TABLET PO SCH (22:59)
[2019-07-19] MEDS: DOCUSATE SODIUM 250 MG CAPSULE PO PRN (22:59)
[2019-07-20] MEDS: HYDROMORPHONE INJ 2 MG/ML DISP.SYRIN IV PRN ×4 (00:50→20:45)
--- NOTE | 2019-07-20 05:00 | NUR ---
MS RN NOTES PT REFUSED AM BLOOD DRAW. EXPLAINED TO PT IMPORTANCE OF HIS LABS IN HIS POC BUT PT STILL REFUSED. WILL CONTINUE TO MONITOR.
--- NOTE | 2019-07-20 06:22 | NUR ---
MS RN NOTES AWAKE & RESPONSIVE. NOT IN ANY DISTRESS. NO SOB NOTED. DENIES ANY PAIN OR DISCOMFORT AT THIS TIME. WITH IVF INFUSING WELL. MONITORED ACCORDINGLY. CALL LIGHT WITHIN REACH. BED IN LOWEST POSITION. SR UP X 2 FOR SAFETY. WILL ENDORSE TO NEXT SHIFT.
--- NOTE | 2019-07-20 07:56 | NUR ---
MS RN NOTES PATIENT RECEIVED RESTING INSIDE ROOM. AWAKE, A/O X 4. NO ACUTE DISTRESS. NO CHANGES IN LOC NOTED. RECEIVED ENDORSEMENT FROM PREVIOUS SHIFT THAT PATIENT REFUSED BLOOD DRAW THIS AM. RISKS AND BENEFITS EXPLAINED TO PATIENT BUT TO NO AVAIL, PATIENT STRONGLY REFUSED. MAINTAINED ISOLATION PRECAUTIONS. PICCLINE IN PLACE WITH DRESSING INTACT, ANTIMICROBIAL PATCH IN PLACE. WILL CONTINUE TO MONITOR. BED LOCKED AND IN LOW POSITION. BILATERAL UPPER SIDE RAILS UP AND LOCKED. CALL LIGHT WITHIN EASY REACH
[2019-07-20 08:00] VITALS: BP 111/65
[2019-07-20] MEDS: HYDROCORTISONE SOD SUCCINATE 100 MG/2 ML VIAL IV SCH ×3 (08:35→17:07)
[2019-07-20] MEDS: ENSURE ENLIVE CHOC 237 ML CAN PO SCH ×3 (08:35→17:07)
[2019-07-20] MEDS: CEFEPIME 2 GM in IV D5W 100 ML IV SCH (08:35)
[2019-07-20] MEDS: FOLIC ACID 1 MG TABLET PO SCH (08:36)
[2019-07-20] MEDS: SENNOSIDES 8.6 MG TABLET PO SCH (08:36)
[2019-07-20] MEDS: MULTIVITAMINS,THERAGRAN 1 UDTAB TABLET PO SCH (08:36)
[2019-07-20] MEDS: NYSTATIN (PYXIS) 500,000 UNIT/5 ML ORAL.SUSP PO SCH ×3 (08:36→17:07)
[2019-07-20] MEDS: FLUCONAZOLE (100 MG) 100 MG TABLET PO SCH (08:36)
[2019-07-20] MEDS: SULFAMETH/TRIMETH 800/160 MG 1 UDTAB TABLET PO SCH ×2 (08:36→20:11)
--- NOTE | 2019-07-20 10:38 | NUR ---
MS RN NOTES SCREW MACHINE TOOL SETTER PRESENT AT UNIT FOR BLOOD DRAW. PATIENT REFUSED TO HAVE BLOOD DRAWN. RISKS AND BENEFITS EXPLAINED BUT TO NO AVAIL. PATIENT STRONGLY REFUSED AND CURSING NURSING STAFF. HOSPITALIST AWARE. WILL CONTINUE TO MONITOR
[2019-07-20 11:07] LABS: *HIV-1 RNA BY PCR 431330 copies/mL (.); *HIV-1 log10 RNA 5.635 (.)
--- NOTE | 2019-07-20 12:15 | NUR ---
MS RN NOTES PATIENT SEEN AND EXAMINED BY GWENDOLYN GORDON SQL DEVELOPER. PATIENT EXPRESSED CONCERN REGARDING SCROTAL SWELLING. PATIENT DENIES GENITAL DISCHARGE, DRAINAGE, BLEEDING NOR DYSURIA. VERBALIZED HE IS ABLE TO PEE WHILE STANDING. ARY CALABRESE DNP ALSO AWARE. NO NEW ORDERS RECEIVED AT THIS TIME. WILL CONTINUE TO MONITOR
[2019-07-20 16:00] VITALS: BP 121/68
--- NOTE | 2019-07-20 18:00 | NUR ---
MS RN NOTES PATIENT RESTING INSIDE ROOM. NO ACUTE DISTRESS. REMAINS A/O X4. MAINTAINED ISOLATION PRECAUTIONS. PATIENT REFUSING TO HAVE IVF ORDERED. RISKS AND BENEFITS EXPLAINED BUT TO NO AVAIL, PATIENT STRONGLY REFUSED. WILL ENDORSE TO INCOMING SHIFT FOR SHAHZAD. BED LOCKED AND IN LOW POSITION. BILATERAL UPPER SIDE RAILS UP AND LOCKED. CALL LIGHT WITHIN EASY REACH
--- NOTE | 2019-07-20 19:30 | NUR ---
MS RN OPENING NOTE RECEIVED ON AIR BORNE ISOLATION TO R/O TB. PATIENT IN BED. A/OX4. TOLERATING ROOM AIR. RESPIRATIONS ARE EVEN AND UNLABORED. NO S/S SOB NOTED. C/O PAIN IN BODY INFORMED PATIENT I WILL BRING PAIN MEDICATION SOON I CAN. IV ACCESS IN MAJO PICC LINE RUNNING NS@120ML/HR. BED IS LOW AND LOCKED, HOB ELEVATED IN HIGH FOWLERS POSITION, SIDE RIALS UP X2. CALL LIGHT WITHIN REACH. WILL CONTINUE TO MONITOR.
[2019-07-20 20:00] VITALS: BP 117/52
[2019-07-20] MEDS: IV NS 0.9% 1,000 ML IV PRN (20:44)
--- NOTE | 2019-07-20 21:16 | NUR ---
MS RN NOTE ADMINISTERED PRN DILUADID FOR PAIN 10/10 FOR GENERALIZED PAIN. WILL CONTINUE TO MONITOR.
[2019-07-20] MEDS: ZOLPIDEM TARTRATE 5 MG TABLET PO PRN (22:23)
[2019-07-20] MEDS: HYDROCODONE/APAP 5/325MG 1 EACH TABLET PO PRN (22:37)
--- NOTE | 2019-07-20 22:37 | NUR ---
MS RN NOTE ADMINISTERED PRN NORCO 5/325 FOR PAIN 7/10 FOR GENERALIZED PAIN AND CHEPE IN SCROTUM. WILL CONTINUE TO MONITOR. ADMINISTERED PRN AMBIEN 5MG PER PATIENT REQUEST. WILL CONTINUE TO MONITOR
--- NOTE | 2019-07-21 02:37 | NUR ---
MS RN NOTE MADE SEVERAL CALLS THROUGHOUT THE NIGHT TO THE AUTOMATIC DATA PROCESSING PLANNER MD TO ATTEMPT TO INCREASE IN PAIN DOSAGE OR INCREASE FREQUENCY. MD DOES NOT WANT TO CHANGE PAIN MEDICATION ORDERS. INFORMED PATIENT OF DOCTORS ORDERS, HE IS NOT SATISFIED. EDUCATED THE PATIENT ON THE PAIN MEDICATIONS, CHAIN OF COMMAND AND ALTERNATIVE ALLEVIATING FACTORS FOR HIS PAIN. NEW METHODS OF PAIN RELIEF TRIED ARE STOPPING IVF, ELEVATING LEGS D/T SWELLING, DARK ROOM, PILLOWS FOR COMFORT, INFORMED PATIENT OF NEXT AVAILABLE TIME TO RECEIVE PAIN MEDICATION.
[2019-07-21] MEDS: HYDROMORPHONE INJ 2 MG/ML DISP.SYRIN IV PRN ×3 (04:24→20:41)
--- NOTE | 2019-07-21 06:00 | NUR ---
MS RN NOTE PATIENT REFUSED AM LABS.
[2019-07-21] MEDS: HYDROCODONE/APAP 5/325MG 1 EACH TABLET PO PRN ×2 (06:01→22:40)
--- NOTE | 2019-07-21 07:11 | NUR ---
MS RN CLOSING NOTE MAINTAINED ON AIR BORNE ISOLATION TO R/O TB. PATIENT IN BED. A/OX4. REMAINS TOLERATING ROOM AIR. RESPIRATIONS ARE EVEN AND UNLABORED. NO SOB NOTED. PAIN MANAGED WITH DILAUDID 2MG AND NORCO 5/325, WANT INTERNAL MEDICINE MD TO INSPECT SCROTAL SWELLING. PATIENT REFUSE AM LABS. IV ACCESS IN MAJO PICC LINE CURRENTLY SALINE LOCKED. BED REMAINS LOW AND LOCKED, HOB ELEVATED IN HIGH FOWLERS POSITION, SIDE RIALS UP X2. CALL LIGHT WITHIN REACH. WILL ENDORSE TO NEXT SHIFT.
--- NOTE | 2019-07-21 07:40 | NUR ---
MS RN NOTES PATIENT RECEIVED RESTING INSIDE ROOM. AWAKE, A/O X 4. NO ACUTE DISTRESS. NO CHANGES IN LOC NOTED. MAINTAINED ISOLATION PRECAUTIONS. PICCLINE IN PLACE ON MAJO, DRESSING INTACT, [place]
--- NOTE | 2019-07-21 07:42 | NUR ---
MS RN NOTES PATIENT RECEIVED RESTING INSIDE ROOM. AWAKE, A/O X 4. NO ACUTE DISTRESS. NO CHANGES IN LOC NOTED. PATIENT CONSTANTLY ASKING FOR FOOD ITEMS INCLUDING COFFEE, COFFEE CAKE/POUND CAKE, ICE CREAM. EXPLAINED TO PATIENT BREAKFAST TRAY WILL BE SERVED SOON AND REQUESTED ITEMS WILL BE RELAYED TO FNS. MAINTAINED ISOLATION PRECAUTIONS. PICCLINE IN PLACE ON MAJO, DRESSING INTACT, ANTIMICROBIAL PATCH IN PLACE. SAFETY PRECAUTIONS IN PLACE. WILL CONTINUE TO MONITOR. BED LOCKED AND IN LOW POSITION. BILATERAL UPPER SIDE RAILS UP AND LOCKED. CALL LIGHT WITHIN EASY REACH
[2019-07-21 08:00] VITALS: BP 120/68
--- NOTE | 2019-07-21 08:19 | NUR ---
MS RN NOTES RECEIVED CALL FROM [facility] TB CONTROL, SPOKE WITH JONNY BARRETO ([phone]) REQUESTING FOR XRAY RESULT FOR BACK OR LUMBAR XRAY. WAS ALSO ASKING REGARDING PATIENT INFORMATION AND REQUESTED TO HAVE CASE MANAGEMENT GIVE HER A CALL. MARIO FROM INFECTION CONTROL MADE AWARE. PLACED CALL TO AND MADE AWARE. WILL CONTINUE TO MONITOR
[2019-07-21] MEDS: NYSTATIN (PYXIS) 500,000 UNIT/5 ML ORAL.SUSP PO SCH ×3 (09:30→17:58)
[2019-07-21] MEDS: FLUCONAZOLE (100 MG) 100 MG TABLET PO SCH (09:31)
[2019-07-21] MEDS: HYDROCORTISONE SOD SUCCINATE 100 MG/2 ML VIAL IV SCH ×3 (09:31→17:58)
[2019-07-21] MEDS: MULTIVITAMINS,THERAGRAN 1 UDTAB TABLET PO SCH (09:31)
[2019-07-21] MEDS: SENNOSIDES 8.6 MG TABLET PO SCH (09:31)
[2019-07-21] MEDS: SULFAMETH/TRIMETH 800/160 MG 1 UDTAB TABLET PO SCH ×2 (09:31→20:41)
[2019-07-21] MEDS: FOLIC ACID 1 MG TABLET PO SCH (09:31)
[2019-07-21] MEDS: ENSURE ENLIVE CHOC 237 ML CAN PO SCH ×3 (09:31→17:58)
--- NOTE | 2019-07-21 15:14 | NUR ---
MS RN NOTES PATIENT SEEN AND EXAMINED BY DR CALABRESE. AWARE OF PATIENT'S C/O SCROTAL SWELLING. NO NEW ORDERS AT THIS TIME.
[2019-07-21 16:00] VITALS: BP 115/62
--- NOTE | 2019-07-21 17:44 | NUR ---
MS RN NOTES WITH NEW ORDER FROM ARY CALABRESE DNP FOR SCROTAL ULTRASOUND. ORDER NOTED AND CARRIED OUT. WILL CONTINUE TO MONITOR
--- NOTE | 2019-07-21 18:03 | NUR ---
MS RN NOTES WITH ORDER FROM SAMPSON KUMARI, ID TRANSPORTATION MECHANIC. TO OK TO DC ISOLATION FROM ID PERSPECTIVE PATIENT HAS NEGATIVE AFB X 3. PLACED CALL TO INFECTION CONTROL MARIO AND MADE AWARE. PER MARIO, CONTINUE ISOLATION PRECAUTIONS [facility] TB CONTROL NEEDS TO OK DISCONTINUING ISOLATION PRIOR TO REMOVING PRECAUTIONS. DR CALABRESE MADE AWARE. WILL CONTINUE AIRBORNE PRECAUTIONS ORDERED. WILL CONTINUE TO MONITOR
--- NOTE | 2019-07-21 19:03 | NUR ---
MS RN NOTES PATIENT RESTING INSIDE ROOM. NO ACUTE DISTRESS. REMAINS A/O X4. MAINTAINED ISOLATION PRECAUTIONS. US OF SCROTUM DONE, AWAITING RESULTS. PATIENT STILL REFUSING TO HAVE IVF ORDERED. RISKS AND BENEFITS EXPLAINED BUT TO NO AVAIL, PATIENT STRONGLY REFUSED. ROOM FILLED WITH CLUTTER AND FOOD PARTICLES ON THE FLOOR. PATIENT REFUSING TO HAVE FOOD ITEMS TAKEN SAYING HE NEEDS TO HAVE THEM HE WILL EAT THEM TONIGHT. NOTED WITH APPROXIMATELY 6 CANS OF SODA AND 8 POUND CAKES AT BEDSIDE AND PATIENT VERBALIZED THAT HE WILL EAT ALL OF IT TONIGHT. NOTED WITH SOILED LINEN AND BLANKET ON THE FLOOR AT BEDSIDE BUT PATIENT REFUSES TO HAVE IT REMOVED. RISKS AND BENEFITS EXPLAINED BUT TO NO AVAIL. WILL ENDORSE TO INCOMING SHIFT FOR SHAHZAD. BED LOCKED AND IN LOW POSITION. BILATERAL UPPER SIDE RAILS UP AND LOCKED. CALL LIGHT WITHIN EASY REACH
--- NOTE | 2019-07-21 19:26 | NUR ---
MS RN RECEIVE PT IN BED, A/O X 4, WATCHING TV. STABLE AND NOT IN DISTRESS, SAFETY MEASURES AT ALL TIMES. WILL CONTINUE TO MONITOR.
--- NOTE | 2019-07-21 19:30 | NUR ---
PT REFUSING IVF FLUID NS DESPITE EXPLAINING RISKS AND BENEFITS OFFERED 3 TIMES P REFUSED AND IRRITATED EDUCATED PT TO STAY HYDRATED AND IMPORTANCE OF IVF.
[2019-07-21 20:00] VITALS: BP 128/51
[2019-07-22] MEDS: HYDROMORPHONE INJ 2 MG/ML DISP.SYRIN IV PRN ×4 (02:43→20:55)
--- NOTE | 2019-07-22 05:55 | NUR ---
MS RN PT REFUSED AM BLOOD DRAW LABS AT THIS DESPITE EXPLAINING RISKS AND BENEFITS PT REFUSED. WILL ENDORSE
--- NOTE | 2019-07-22 06:14 | NUR ---
MS RN PT ASLEEP AND EASILY AWAKEN, NO S/S OF DISTRESS, SCROTUM EDEMA DEPENDENT ELEVATED WITH PILLOWS TO REDUCE EDEMA. MONITORED FOR PAIN. NEEDS ATTENDED AND ANTICIPATED, KEPT CLEAN, DRY AND COMFORTABLE. SAFETY MEASURES AT ALL TIMES. WILL ENDORSE NEXT SHIFT.
--- NOTE | 2019-07-22 06:16 | NUR ---
PT STILL REFUSED IVF DESPITE EXPLAINING RISKS AND BENEFITS
[2019-07-22] MEDS: HYDROCODONE/APAP 5/325MG 1 EACH TABLET PO PRN ×2 (06:22→12:19)
--- NOTE | 2019-07-22 07:35 | NUR ---
RN OPENING NOTES Received patient on room air, no sob noted, patient denies pain at this time but does have some discomfort in his scrotal area. MAJO picc line remains in line but refuses IVF. Bed at the lowest setting, call light within reach, side rails up x2.
[2019-07-22 08:00] VITALS: BP 121/70
[2019-07-22] MEDS: HYDROCORTISONE SOD SUCCINATE 100 MG/2 ML VIAL IV SCH ×3 (08:02→16:20)
[2019-07-22] MEDS: SENNOSIDES 8.6 MG TABLET PO SCH (08:03)
[2019-07-22] MEDS: MULTIVITAMINS,THERAGRAN 1 UDTAB TABLET PO SCH (08:03)
[2019-07-22] MEDS: NYSTATIN (PYXIS) 500,000 UNIT/5 ML ORAL.SUSP PO SCH ×3 (08:03→16:20)
[2019-07-22] MEDS: FLUCONAZOLE (100 MG) 100 MG TABLET PO SCH (08:03)
[2019-07-22] MEDS: SULFAMETH/TRIMETH 800/160 MG 1 UDTAB TABLET PO SCH ×2 (08:03→20:55)
[2019-07-22] MEDS: FOLIC ACID 1 MG TABLET PO SCH (08:03)
[2019-07-22] MEDS: ENSURE ENLIVE CHOC 237 ML CAN PO SCH ×3 (08:04→16:22)
--- NOTE | 2019-07-22 11:41 | NUR ---
MARIANO NOTES Patient denying [facility] stay at this time. Addendum: 07/22/19 at 1142 by RE VALE RN ERROR
[2019-07-22 16:00] VITALS: BP 125/76
--- NOTE | 2019-07-22 17:29 | NUR ---
rn notes patient refuses skin checks, or his linens to be changed.
[2019-07-22] MEDS ORDERED: FLUC100T8 PO (18:30)
[2019-07-22] MEDS ORDERED: Sulfameth/Trimeth 800/160 Mg PO (18:30)
--- NOTE | 2019-07-22 19:24 | NUR ---
MS RN OPENING NOTE RECEIVED PATIENT WALKING IN HIS ROOM. WITH FRIEND AT BEDSIDE, FOR DISCHARGE. STABLE AND NOT IN DISTRESS. WILL CONTINUE TO MONITOR
--- NOTE | 2019-07-22 19:25 | NUR ---
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 PER KINSEY NO NEED TO GIVE REPORT TO THE [facility] SHE HAD GIVEN REPORT ALREADY. PT AWARE.
[2019-07-22 20:00] VITALS: BP 139/86
--- NOTE | 2019-07-22 22:46 | NUR ---
PATIENT DISCHARGE PATIENT LEFT AT 2138 HAND ENGRAVER [facility] VIA GURNEY WITH 2 EMT, REPORT GIVEN TO ERIBERTO. CALLED CASE MANAGEMENT KINSEY PATIENT BEING HAND ENGRAVER BY [facility] AND [facility]. PATIENT STABLE CONDITION NO S/S OF DISTRESS NOTED, NO COMPLAIN OF PAIN, HEALTH EDUCATION WAS PROVIDED TO THE PT AND RONALD FERGUSON (FRIEND AT BEDSIDE) PT CALM AT THIS TIME. PT VERBALIZED UNDERSTANDING. EDUCATION ABOUT DISEASE AND RISKS AND BENEFITS FOLLOW UP CARE PROVIDED, FRIEND ALL DISCHARGE DOCUMENTS MED PRESCRIPTION WAS PROVIDED HANDED TO EMT. PT REFUSED SKIN ASSESSMENT DESPITE EXPLAINING RISKS AND BENEFITS PER PT VERBALIZED "I HAVE NO WOUNDS PLS STOP". RIGHT UPPER ARM PICC LINE REMOVED INSTRUCTED WITH TIP OF THE LINE INTACT. COVERED RIGHT ARM WITH CLEAN DRY DRESSING NO S/S OF BLEEDING. ALL BELONGINGS WAS TAKEN, . PATIENT APPRECIATIVE TO NURSES AND THANKFUL.
== END 2019-07-22 21:38 | DRG 892 ==
LOC: ER 14:46 → TELE 18:40 → ICU 07-13 02:13 → MEDSG2 07-15 10:26
PROVIDERS: ADMIT Family Medicine; ATTEND Hospitalist
DX: B20 Human immunodeficiency virus [HIV] disease (principal); A41.9 Sepsis, unspecified organism; R65.21 Severe sepsis with septic shock; B37.0 Candidal stomatitis; J15.9 Unspecified bacterial pneumonia; D69.6 Thrombocytopenia, unspecified; B37.81 Candidal esophagitis; E83.39 Other disorders of phosphorus metabolism; E83.42 Hypomagnesemia; D63.8 Anemia in other chronic diseases classified elsewhere; E87.6 Hypokalemia; F17.210 Nicotine dependence, cigarettes, uncomplicated; Z91.19 Patient's noncompliance with other medical treatment and regimen; Z87.01 Personal history of pneumonia (recurrent); Z76.5 Malingerer [conscious simulation]; G40.909 Epilepsy, unspecified, not intractable, without status epilepticus; F15.10 Other stimulant abuse, uncomplicated; S99.821A Other specified injuries of right foot, initial encounter; V03.99XA Pedestrian with other conveyance injured in collision with car, pick-up truck or van, unspecified whether traffic or nontraffic accident, initial encounter; Y93.89 Activity, other specified; Y92.89 Other specified places as the place of occurrence of the external cause; K59.00 Constipation, unspecified; Y92.410 Unspecified street and highway as the place of occurrence of the external cause; Z83.3 Family history of diabetes mellitus; Z99.3 Dependence on wheelchair; R91.8 Other nonspecific abnormal finding of lung field; N50.89 Other specified disorders of the male genital organs
CPT/HCPCS: 36415; 36569; 36600; 71045-TC; 71250-TC; 72100-TC; 72170-TC; 73610-TC; 76870-TC; 80048-TC; 80061-TC; 80076-TC; 80202-TC; 81000-TC; 82533; 82803-TC; 82962-TC; 83605-TC; 83615-TC; 83690-TC; 83735-TC; 84100-TC; 84484-TC; 85025-TC; 85730-TC; 86360; 87040-TC; 87070-TC; 87081-TC; 87086-TC; 87116; 87206; 87281; 87536; 87899; A4216; C1751; G0378; J0692; J1170; J1450; J1720; J2270; J2370; J2405; J3370; J3475; J3490; J7030; J7060